=== PATIENT | female | born 1980 | race Caucasian/White ===

== ENCOUNTER 2020-02-16 20:19 | Inpatient (IN) | payer MEDICAID, OTHER, SELFPAY ==
[~2020-02-16] VITALS: Ht 170.2 cm; Wt 70.8 kg
[2020-02-16] MEDS ORDERED: IPRATROPIUM BROM 0.5 MG/2.5ML INH SOL NEB ONE (22:30)
[2020-02-16 22:39] LABS: Urine Bacteria MOD /hpf (None Seen); Urine Blood 2+ /uL (Negative); Urine Mucus FEW (None Seen); Urine Specific Gravity 1.017 (1.001-1.035); Urine WBC 53 /hpf (0 - 5); Urine WBC Clumps PRESENT /hpf (None Seen)
[2020-02-16 22:42] LABS: Albumin 2.7 g/dL (3.4-5.0); Calcium 8.6 mg/dL (8.5-10.1); Lactic Acid w/Reflex 2.8 mmol/L (0.4-2.0)
[2020-02-16 22:44] LABS: Bilirubin, Total 0.5 mg/dL (0.2-1.0); Total Protein 8.2 g/dL (6.4-8.2)
[2020-02-16 22:45] LABS: Hematocrit 17.8 % (36.0-46.0); Mean Corpuscular Hemoglobin 12.8 pg (28.0-32.0); Mean Corpuscular Hgb Conc. 24.1 g/dL (32.0-36.0); Mean Corpuscular Volume 52.9 fL (80.0-100.0); Red Blood Cells 3.36 10^6/uL (4.0-5.20); White Blood Cell 24.1 10^3/uL (4.4-10.8)
[2020-02-16 22:49] LABS: Red Cell Distribution Width 25.6 % (11.8-14.3)
[2020-02-16 22:52] LABS: Potassium 2.8 mmol/L (3.5-5.1)
[2020-02-16 22:53] LABS: Hemoglobin 4.3 g/dL (12.2-16.2); Platelet Count (auto) 1016 10^3/uL (140-450)
[2020-02-16 22:55] LABS: Basophils % (manual) 0 (0.0-2.0); Blast Cells 0; Eosinophils % (manual) 0 (0-7); Metamyelocytes % 0; Myelocytes % 0; Promyelocytes % 0; Reactive Lymphocytes 0
[2020-02-16] MEDS ORDERED: POTASSIUM EFFERVESENT TAB 25 MEQ PO ONE (23:00)
[2020-02-16 23:21] LABS: Band Neutrophils % (manual) 5; Lymphocytes % (manual) 10 (10.0-50.0); Monocytes % (manual) 5 (0-12)
[2020-02-16] MEDS ORDERED: levoFLOXacin 750MG 150 ML IV ONE (23:30)
[2020-02-17] VITALS (18 sets, daily range): BP systolic 91–109; BP diastolic 47–68
[2020-02-17] MEDS ORDERED: HYDROmorphone HCL 2 MG/ML VL IV ONE (00:30)
[2020-02-17] MEDS ORDERED: SODIUM CHLORIDE 0.9% 1,000 ML IV SCH (01:28)
[2020-02-17] MEDS ORDERED: ONDANSETRON HCL 4 MG/2 ML VIAL IV PRN (01:30)
[2020-02-17] MEDS ORDERED: ALBUTEROL SULF 2.5 MG/0.5ML(0.5%) NEB SOLN NEB PRN (01:30)
[2020-02-17] MEDS ORDERED: NITROGLYCERIN 0.4 MG SL TAB SL PRN (01:30)
[2020-02-17] MEDS ORDERED: DOCUSATE SOD 100 MG CAP PO PRN (01:30)
[2020-02-17] MEDS ORDERED: IPRATROPIUM BROM 0.5 MG/2.5ML INH SOL NEB PRN (01:30)
[2020-02-17] MEDS ORDERED: LORazepam 0.5 MG TAB PO PRN (01:30)
[2020-02-17] MEDS ORDERED: ACETAMINOPHEN 500 MG TAB PO PRN (01:30)
[2020-02-17] MEDS ORDERED: MORPHINE SULF INJ 2 MG/ML SYRINGE 1ML IV PRN ×2 (01:30)
[2020-02-17] MEDS ORDERED: ALBUTEROL SULF HFA 90MCG INH 200DOSE IN SCH ×2 (06:00)
[2020-02-17] MEDS ORDERED: methylPREDNISolone SOD SUCC 40 MG/ML VL ONE (09:05)
[2020-02-17] MEDS ORDERED: DOXYCYCLINE 100MG/250ML 250 ML IV SCH (10:00)
[2020-02-17] MEDS: methylPREDNISolone SOD SUCC 125 MG/2 ML VL IV SCH (10:38)
[2020-02-17] MEDS: ZINC SULFATE 220mg CAP or TAB PO SCH (10:39)
[2020-02-17] MEDS: CHOLECALCIFEROL (VITD3) 1,000IU=25mCg TAB PO SCH (10:40)
[2020-02-17] MEDS: ENOXAPARIN SOD 40 MG/0.4 ML SYRINGE SC SCH (10:40)
[2020-02-17] MEDS: ASCORBIC ACID 1,000 MG TAB PO SCH (10:40)
[2020-02-17 13:52] LABS: Hematocrit 23.4 % (36.0-46.0); Mean Corpuscular Hemoglobin 17.4 pg (28.0-32.0); Mean Corpuscular Hgb Conc. 28.1 g/dL (32.0-36.0); Mean Corpuscular Volume 61.9 fL (80.0-100.0); Red Blood Cells 3.78 10^6/uL (4.0-5.20); White Blood Cell 23.5 10^3/uL (4.4-10.8)
[2020-02-17 13:57] LABS: Red Cell Distribution Width 34.9 % (11.8-14.3)
[2020-02-17 14:02] LABS: Hemoglobin 6.6 g/dL (12.2-16.2); Platelet Count (auto) 999 10^3/uL (140-450)
[2020-02-17 14:05] LABS: Basophils % (manual) 0 (0.0-2.0); Blast Cells 0; Eosinophils % (manual) 0 (0-7); Metamyelocytes % 0; Myelocytes % 0; Promyelocytes % 0; Reactive Lymphocytes 0
[2020-02-17 14:20] LABS: Band Neutrophils % (manual) 3; Lymphocytes % (manual) 4 (10.0-50.0); Monocytes % (manual) 2 (0-12)
[2020-02-17] MEDS ORDERED: VANCOMYCIN 1GM/250ML 250 ML IV ONE ×2 (19:00→20:00)
[2020-02-17] MEDS: HYDROcodone-ACET 5/325MG TAB PO PRN (20:12)
[2020-02-18] VITALS (8 sets, daily range): BP systolic 89–110; BP diastolic 62–93
[2020-02-18 07:19] LABS: Hemoglobin 8.7 g/dL (12.2-16.2)
[2020-02-18 07:21] LABS: Hematocrit 28.8 % (36.0-46.0); Mean Corpuscular Hemoglobin 20.4 pg (28.0-32.0); Mean Corpuscular Hgb Conc. 30.3 g/dL (32.0-36.0); Mean Corpuscular Volume 67.2 fL (80.0-100.0); Red Blood Cells 4.28 10^6/uL (4.0-5.20); White Blood Cell 22.7 10^3/uL (4.4-10.8)
[2020-02-18 07:26] LABS: Red Cell Distribution Width 35.1 % (11.8-14.3)
[2020-02-18 07:30] LABS: Platelet Count (auto) 1017 10^3/uL (140-450)
[2020-02-18 07:31] LABS: Basophils % (manual) 0 (0.0-2.0); Blast Cells 0; Eosinophils % (manual) 0 (0-7); Myelocytes % 0; Promyelocytes % 0; Reactive Lymphocytes 0
[2020-02-18 07:38] LABS: BUN/Creatinine Ratio 21.1; Calcium 8.3 mg/dL (8.5-10.1); Potassium 3.6 mmol/L (3.5-5.1)
[2020-02-18 07:47] LABS: Band Neutrophils % (manual) 3; Lymphocytes % (manual) 13 (10.0-50.0); Metamyelocytes % 1; Monocytes % (manual) 3 (0-12)
[2020-02-18] MEDS ORDERED: VANCOMYCIN 1GM/250ML 250 ML IV SCH (10:00)
[2020-02-18] MEDS: CHOLECALCIFEROL (VITD3) 1,000IU=25mCg TAB PO SCH (11:36)
[2020-02-18] MEDS: ZINC SULFATE 220mg CAP or TAB PO SCH (11:36)
[2020-02-18] MEDS: methylPREDNISolone SOD SUCC 125 MG/2 ML VL IV SCH (11:37)
[2020-02-18] MEDS: ENOXAPARIN SOD 40 MG/0.4 ML SYRINGE SC SCH (11:37)
[2020-02-18] MEDS: ASCORBIC ACID 1,000 MG TAB PO SCH (11:37)
[2020-02-18] MEDS: HYDROcodone-ACET 5/325MG TAB PO PRN ×2 (11:39→21:10)
[2020-02-18] MEDS ORDERED: ERTAPENEM SOD INJ 1 GM in SODIUM CHL 0.9% 50 ML IV ONE (11:45)
[2020-02-18] MEDS ORDERED: OMNIPAQUE ORAL SOLN 500ml 12mg/ml PO ONE (11:55)
[2020-02-18] MEDS ORDERED: IOHEXOL 300 MG/ML 100ML BOTTLE IJ ONE (14:23)
[2020-02-18] MEDS ORDERED: VANCOMYCIN PER PHARMACY 0 MG IV SCH (14:30)
[2020-02-18] MEDS: VANCOMYCIN 1GM/250ML 250 ML IV SCH (22:59)
[2020-02-19 05:00] VITALS: BP 100/64
[2020-02-19 06:48] LABS: Hemoglobin 8.6 g/dL (12.2-16.2)
[2020-02-19 06:54] LABS: Hematocrit 28.6 % (36.0-46.0); Mean Corpuscular Hemoglobin 20.6 pg (28.0-32.0); Mean Corpuscular Hgb Conc. 30.1 g/dL (32.0-36.0); Mean Corpuscular Volume 68.7 fL (80.0-100.0); Red Blood Cells 4.16 10^6/uL (4.0-5.20); White Blood Cell 23.1 10^3/uL (4.4-10.8)
[2020-02-19 06:59] LABS: Potassium 3.9 mmol/L (3.5-5.1)
[2020-02-19 07:10] LABS: Red Cell Distribution Width 35.7 % (11.8-14.3)
[2020-02-19 07:13] LABS: Platelet Count (auto) 1247 10^3/uL (140-450)
[2020-02-19 07:15] LABS: Basophils % (manual) 0 (0.0-2.0); Blast Cells 0; Eosinophils % (manual) 0 (0-7); Myelocytes % 0; Promyelocytes % 0; Reactive Lymphocytes 0
[2020-02-19 07:36] LABS: Band Neutrophils % (manual) 4; Lymphocytes % (manual) 8 (10.0-50.0); Metamyelocytes % 1; Monocytes % (manual) 6 (0-12)
[2020-02-19 08:00] VITALS: BP 121/78
[2020-02-19] MEDS: HYDROcodone-ACET 5/325MG TAB PO PRN ×2 (08:17→19:18)
[2020-02-19] MEDS: CHOLECALCIFEROL (VITD3) 1,000IU=25mCg TAB PO SCH (10:02)
[2020-02-19] MEDS: ASCORBIC ACID 1,000 MG TAB PO SCH (10:02)
[2020-02-19] MEDS: methylPREDNISolone SOD SUCC 125 MG/2 ML VL IV SCH (10:02)
[2020-02-19] MEDS: ERTAPENEM SOD INJ 1 GM in SODIUM CHL 0.9% 50 ML IV SCH (10:03)
[2020-02-19] MEDS: ZINC SULFATE 220mg CAP or TAB PO SCH (10:03)
[2020-02-19] MEDS: VANCOMYCIN 1GM/250ML 250 ML IV SCH ×2 (11:01→23:09)
[2020-02-19 12:00] VITALS: BP 111/68
[2020-02-19 17:00] VITALS: BP 103/71
[2020-02-19] MEDS: Ensure HIGH Protein Chocolate 8oz Bottle PO SCH (17:59)
[2020-02-19 22:00] VITALS: BP 99/56
[2020-02-20 05:00] VITALS: BP 104/64
[2020-02-20 06:35] LABS: Hemoglobin 8.7 g/dL (12.2-16.2)
[2020-02-20 06:37] LABS: Hematocrit 29.6 % (36.0-46.0); Mean Corpuscular Hemoglobin 20.5 pg (28.0-32.0); Mean Corpuscular Hgb Conc. 29.4 g/dL (32.0-36.0); Mean Corpuscular Volume 69.9 fL (80.0-100.0); Red Blood Cells 4.24 10^6/uL (4.0-5.20); White Blood Cell 18.6 10^3/uL (4.4-10.8)
[2020-02-20 07:09] LABS: BUN/Creatinine Ratio 33.9; Calcium 8.2 mg/dL (8.5-10.1)
[2020-02-20 07:40] LABS: Red Cell Distribution Width 36.6 % (11.8-14.3)
[2020-02-20 07:42] LABS: Basophils % (manual) 0 (0.0-2.0); Blast Cells 0; Eosinophils % (manual) 0 (0-7); Platelet Count (auto) 1342 10^3/uL (140-450); Promyelocytes % 0; Reactive Lymphocytes 0
[2020-02-20 08:00] VITALS: BP 113/74
[2020-02-20 08:04] LABS: Band Neutrophils % (manual) 1; Lymphocytes % (manual) 13 (10.0-50.0); Metamyelocytes % 1; Monocytes % (manual) 4 (0-12); Myelocytes % 1
[2020-02-20] MEDS: Ensure HIGH Protein Chocolate 8oz Bottle PO SCH ×3 (08:38→18:09)
[2020-02-20] MEDS: ZINC SULFATE 220mg CAP or TAB PO SCH (09:12)
[2020-02-20] MEDS: ERTAPENEM SOD INJ 1 GM in SODIUM CHL 0.9% 50 ML IV SCH (09:12)
[2020-02-20] MEDS: methylPREDNISolone SOD SUCC 125 MG/2 ML VL IV SCH (09:12)
[2020-02-20] MEDS: CHOLECALCIFEROL (VITD3) 1,000IU=25mCg TAB PO SCH (09:12)
[2020-02-20] MEDS: ASCORBIC ACID 1,000 MG TAB PO SCH (09:12)
[2020-02-20] MEDS: VANCOMYCIN 1GM/250ML 250 ML IV SCH ×2 (11:33→23:05)
[2020-02-20 13:00] VITALS: BP 110/70
[2020-02-20 17:00] VITALS: BP 100/69
[2020-02-20] MEDS: HYDROcodone-ACET 5/325MG TAB PO PRN (18:49)
[2020-02-20 20:00] VITALS: BP 107/68
[2020-02-20 22:06] VITALS: BP 107/68
[2020-02-21 05:25] VITALS: BP 137/81
[2020-02-21 06:14] LABS: Hemoglobin 8.8 g/dL (12.2-16.2)
[2020-02-21 06:18] LABS: Hematocrit 28.5 % (36.0-46.0); Mean Corpuscular Hemoglobin 21.5 pg (28.0-32.0); Mean Corpuscular Hgb Conc. 30.7 g/dL (32.0-36.0); Red Blood Cells 4.07 10^6/uL (4.0-5.20); White Blood Cell 17.9 10^3/uL (4.4-10.8)
[2020-02-21 06:31] LABS: Red Cell Distribution Width 36.8 % (11.8-14.3)
[2020-02-21 06:32] LABS: Albumin 2.4 g/dL (3.4-5.0); Calcium 8.4 mg/dL (8.5-10.1); Potassium 4.3 mmol/L (3.5-5.1)
[2020-02-21 06:33] LABS: Platelet Count (auto) 1405 10^3/uL (140-450)
[2020-02-21 06:35] LABS: Basophils % (manual) 0 (0.0-2.0); Blast Cells 0; Promyelocytes % 0; Reactive Lymphocytes 0
[2020-02-21 06:36] LABS: BUN/Creatinine Ratio 33.3; Bilirubin, Total 0.5 mg/dL (0.2-1.0)
[2020-02-21 07:26] LABS: Band Neutrophils % (manual) 1; Eosinophils % (manual) 1 (0-7); Lymphocytes % (manual) 16 (10.0-50.0); Metamyelocytes % 1; Monocytes % (manual) 4 (0-12); Myelocytes % 1
[2020-02-21] MEDS: Ensure HIGH Protein Chocolate 8oz Bottle PO SCH ×3 (08:00→17:44)
[2020-02-21 09:08] VITALS: BP 107/75
[2020-02-21] MEDS: ASPirin 81 mg TAB PO SCH (09:37)
[2020-02-21] MEDS: ZINC SULFATE 220mg CAP or TAB PO SCH (09:37)
[2020-02-21] MEDS: ERTAPENEM SOD INJ 1 GM in SODIUM CHL 0.9% 50 ML IV SCH (09:37)
[2020-02-21] MEDS: CHOLECALCIFEROL (VITD3) 1,000IU=25mCg TAB PO SCH (09:37)
[2020-02-21] MEDS: ASCORBIC ACID 1,000 MG TAB PO SCH (09:37)
[2020-02-21] MEDS: methylPREDNISolone SOD SUCC 125 MG/2 ML VL IV SCH (09:37)
[2020-02-21] MEDS: HYDROcodone-ACET 5/325MG TAB PO PRN ×2 (10:08→18:37)
[2020-02-21] MEDS: VANCOMYCIN 1GM/250ML 250 ML IV SCH ×2 (11:24→23:25)
[2020-02-21 12:16] VITALS: BP 116/74
[2020-02-21] MEDS ORDERED: FLUCONAZOLE 100 MG TAB PO ONE (13:00)
[2020-02-21 16:55] VITALS: BP 104/71
[2020-02-21 22:47] VITALS: BP 117/79
[2020-02-22 05:21] VITALS: BP 103/65
[2020-02-22] MEDS: Ensure HIGH Protein Chocolate 8oz Bottle PO SCH ×2 (08:00→12:00)
[2020-02-22 09:00] VITALS: BP 103/57
[2020-02-22] MEDS: HYDROcodone-ACET 5/325MG TAB PO PRN ×2 (09:30→21:55)
[2020-02-22] MEDS: ASPirin 81 mg TAB PO SCH (09:32)
[2020-02-22] MEDS: CHOLECALCIFEROL (VITD3) 1,000IU=25mCg TAB PO SCH (09:33)
[2020-02-22] MEDS: ASCORBIC ACID 1,000 MG TAB PO SCH (09:33)
[2020-02-22] MEDS: ZINC SULFATE 220mg CAP or TAB PO SCH (09:33)
[2020-02-22] MEDS: methylPREDNISolone SOD SUCC 125 MG/2 ML VL IV SCH (09:33)
[2020-02-22] MEDS ORDERED: DOXYCYCLINE 100 MG TAB/CAP PO SCH (10:00)
[2020-02-22] MEDS: ERTAPENEM SOD INJ 1 GM in SODIUM CHL 0.9% 50 ML IV SCH (11:02)
[2020-02-22] MEDS ORDERED: levoFLOXacin 500 MG TAB PO ONE (11:30)
[2020-02-22 11:58] LABS: Hemoglobin 8.8 g/dL (12.2-16.2)
[2020-02-22 12:03] LABS: Hematocrit 29.6 % (36.0-46.0); Mean Corpuscular Hgb Conc. 29.6 g/dL (32.0-36.0); Red Blood Cells 4.17 10^6/uL (4.0-5.20)
[2020-02-22 12:23] LABS: Red Cell Distribution Width 37.1 % (11.8-14.3)
[2020-02-22 12:24] LABS: Platelet Count (auto) 1534 10^3/uL (140-450)
[2020-02-22 12:25] LABS: Band Neutrophils % (manual) 0; Basophils % (manual) 0 (0.0-2.0); Blast Cells 0; Eosinophils % (manual) 0 (0-7); Metamyelocytes % 0; Myelocytes % 0; Promyelocytes % 0; Reactive Lymphocytes 0
[2020-02-22 12:41] LABS: Lymphocytes % (manual) 7 (10.0-50.0); Monocytes % (manual) 7 (0-12)
[2020-02-22 13:00] VITALS: BP 128/86
[2020-02-22] MEDS: FLUCONAZOLE 100 MG TAB PO SCH (13:12)
[2020-02-22 17:00] VITALS: BP 124/80
[2020-02-22 20:00] VITALS: BP 120/70
[2020-02-22 22:00] VITALS: BP 120/70
[2020-02-23 05:00] VITALS: BP 110/72
[2020-02-23 08:00] VITALS: BP 132/83
[2020-02-23] MEDS: methylPREDNISolone SOD SUCC 125 MG/2 ML VL IV SCH (09:59)
[2020-02-23] MEDS: ASPirin 81 mg TAB PO SCH (09:59)
[2020-02-23] MEDS: ZINC SULFATE 220mg CAP or TAB PO SCH (10:00)
[2020-02-23] MEDS ORDERED: levoFLOXacin 500 MG TAB PO SCH (10:00)
[2020-02-23] MEDS ORDERED: hydroxyUREA 500 MG CAP PO SCH (10:00)
[2020-02-23] MEDS: ASCORBIC ACID 1,000 MG TAB PO SCH (10:00)
[2020-02-23] MEDS: CHOLECALCIFEROL (VITD3) 1,000IU=25mCg TAB PO SCH (10:00)
[2020-02-23] MEDS: FLUCONAZOLE 100 MG TAB PO SCH (10:05)
[2020-02-23 12:00] VITALS: BP 122/81
== END 2020-02-23 14:20 | disposition home or self-care (01) | DRG 663 ==
LOC: ER 20:19 → EDBD 20:19 → TELE 20:20 → TELE-EAST 02-17 04:30
PROVIDERS: ADMIT Hospitalist; ATTEND Internal Medicine
PROC: 30233N1 Transfusion of Nonautologous Red Blood Cells into Peripheral Vein, Percutaneous Approach (ICD-10-PCS; principal; 2020-02-17)
DX: D50.9 Iron deficiency anemia, unspecified (principal); E44.0 Moderate protein-calorie malnutrition; E88.09 Other disorders of plasma-protein metabolism, not elsewhere classified; C94.6 Myelodysplastic disease, not elsewhere classified; B37.9 Candidiasis, unspecified; D47.3 Essential (hemorrhagic) thrombocythemia; D56.3 Thalassemia minor; J98.11 Atelectasis; E05.90 Thyrotoxicosis, unspecified without thyrotoxic crisis or storm; N39.0 Urinary tract infection, site not specified; R79.89 Other specified abnormal findings of blood chemistry; J20.8 Acute bronchitis due to other specified organisms; E87.6 Hypokalemia; Z86.14 Personal history of Methicillin resistant Staphylococcus aureus infection; Z82.49 Family history of ischemic heart disease and other diseases of the circulatory system; Z88.0 Allergy status to penicillin; Z68.24 Body mass index [BMI] 24.0-24.9, adult; Z20.828 Contact with and (suspected) exposure to other viral communicable diseases; N92.0 Excessive and frequent menstruation with regular cycle
CPT/HCPCS: 36415; 71045; 71250; 74177; 76830; 76856; 80048; 80053; 80202; 81001; 81206; 81207; 82105; 82270; 82565; 82668; 82728; 83021; 83605; 83615; 83735; 84132; 84443; 84484; 85007; 85014; 85027; 85045; 85660; 86141; 86850; 86900; 86901; 86920; 87040; 87070; 87086; 87205; 87804; 87880; 93005; 93306; 96365; 96375; G0378; J1335; J1956; J3490

== ENCOUNTER 2020-04-12 20:20 | Inpatient (IN) | payer MEDICAID ==
[~2020-04-12] VITALS: Ht 170.2 cm; Wt 71.1 kg
[2020-04-12] MEDS: SODIUM CHLORIDE 0.9% 1,000 ML IV SCH (00:30)
[2020-04-12 21:30] LABS: Platelet Count (auto) 38 10^3/uL (140-450)
[2020-04-12 21:32] LABS: Hematocrit 7.9 % (36.0-46.0); Mean Corpuscular Hemoglobin 24.6 pg (28.0-32.0); Mean Corpuscular Hgb Conc. 28.7 g/dL (32.0-36.0); Mean Corpuscular Volume 85.6 fL (80.0-100.0); Red Blood Cells 0.93 10^6/uL (4.0-5.20); White Blood Cell 22.3 10^3/uL (4.4-10.8)
[2020-04-12 21:38] LABS: Red Cell Distribution Width 31.6 % (11.8-14.3)
[2020-04-12 21:40] LABS: Hemoglobin 2.3 g/dL (12.2-16.2)
[2020-04-12 21:41] LABS: Basophils % (manual) 0 (0.0-2.0); Blast Cells 0; Eosinophils % (manual) 0 (0-7); Monocytes % (manual) 0 (0-12); Myelocytes % 0; Promyelocytes % 0; Reactive Lymphocytes 0
[2020-04-12 21:44] LABS: Albumin 3.2 g/dL (3.4-5.0); BUN/Creatinine Ratio 14.1; Calcium 8.7 mg/dL (8.5-10.1); Magnesium 2.4 mg/dL (1.6-2.6); Potassium 4.2 mmol/L (3.5-5.1)
[2020-04-12 21:47] LABS: Bilirubin, Total 0.2 mg/dL (0.2-1.0); Total Protein 6.6 g/dL (6.4-8.2)
[2020-04-12 22:21] LABS: Partial Thromboplastin Time < 20.0 sec (23.64-32.05)
[2020-04-12 22:29] LABS: Band Neutrophils % (manual) 3; Lymphocytes % (manual) 19 (10.0-50.0); Metamyelocytes % 1
[2020-04-12] MEDS ORDERED: ACETAMINOPHEN 325 MG TAB PO PRN (23:15)
[2020-04-12] MEDS ORDERED: DOCUSATE SOD 100 MG CAP PO PRN (23:15)
[2020-04-12] MEDS ORDERED: HYDROcodone-ACET 5/325MG TAB PO PRN (23:15)
[2020-04-12] MEDS ORDERED: MORPHINE SULF INJ 2 MG/ML SYRINGE 1ML IV PRN (23:15)
[2020-04-12] MEDS ORDERED: METOCLOPRAMIDE HCL 5MG/ml INJ 2ml VIAL IV PRN (23:15)
[2020-04-12] MEDS ORDERED: ONDANSETRON HCL 4 MG/2 ML VIAL IV PRN (23:15)
[2020-04-13] VITALS (18 sets, daily range): BP systolic 90–124; BP diastolic 35–77
[2020-04-13] MEDS ORDERED: ACETAMINOPHEN 325 MG TAB PO ONE (00:30)
[2020-04-13] MEDS ORDERED: diphenhdrAMINE HCL 25 MG CAP PO ONE (00:30)
[2020-04-13] MEDS: SODIUM CHLORIDE 0.9% 1,000 ML IV SCH (00:40)
[2020-04-13 08:35] LABS: Platelet Count (auto) 30 10^3/uL (140-450); Red Blood Cells 1.68 10^6/uL (4.0-5.20)
[2020-04-13 08:38] LABS: Mean Corpuscular Hemoglobin 26.9 pg (28.0-32.0); Mean Corpuscular Hgb Conc. 32.3 g/dL (32.0-36.0); Mean Corpuscular Volume 83.4 fL (80.0-100.0); Red Cell Distribution Width 18.9 % (11.8-14.3); White Blood Cell 15.4 10^3/uL (4.4-10.8)
[2020-04-13 08:53] LABS: Potassium 3.6 mmol/L (3.5-5.1)
[2020-04-13 08:59] LABS: BUN/Creatinine Ratio 17.7; Hemoglobin 4.5 g/dL (12.2-16.2)
[2020-04-13 09:00] LABS: Band Neutrophils % (manual) 0; Basophils % (manual) 0 (0.0-2.0); Blast Cells 0; Metamyelocytes % 0; Promyelocytes % 0; Reactive Lymphocytes 0
[2020-04-13 09:11] LABS: Eosinophils % (manual) 1 (0-7); Lymphocytes % (manual) 23 (10.0-50.0); Monocytes % (manual) 6 (0-12); Myelocytes % 2
[2020-04-13 18:46] LABS: Platelet Count (auto) 38 10^3/uL (140-450)
[2020-04-13 18:48] LABS: Hemoglobin 7.6 g/dL (12.2-16.2); Mean Corpuscular Hemoglobin 29.3 pg (28.0-32.0); Mean Corpuscular Hgb Conc. 32.8 g/dL (32.0-36.0); Mean Corpuscular Volume 89.1 fL (80.0-100.0); Red Blood Cells 2.58 10^6/uL (4.0-5.20); Red Cell Distribution Width 16.9 % (11.8-14.3); White Blood Cell 14.2 10^3/uL (4.4-10.8)
[2020-04-13 18:56] LABS: Basophils % (manual) 0 (0.0-2.0); Blast Cells 0; Eosinophils % (manual) 0 (0-7); Metamyelocytes % 0; Myelocytes % 0; Promyelocytes % 0; Reactive Lymphocytes 0
[2020-04-13 20:47] LABS: Band Neutrophils % (manual) 3
[2020-04-13 20:48] LABS: Lymphocytes % (manual) 15 (10.0-50.0); Monocytes % (manual) 5 (0-12)
[2020-04-13] MEDS: medroxyPROGESTERone ACETATE 5 MG TAB PO SCH (22:00)
[2020-04-14 05:47] LABS: Hemoglobin 7.2 g/dL (12.2-16.2); Platelet Count (auto) 48 10^3/uL (140-450); Red Cell Distribution Width 17.4 % (11.8-14.3)
[2020-04-14 05:48] LABS: Hematocrit 21.5 % (36.0-46.0); Mean Corpuscular Hgb Conc. 33.3 g/dL (32.0-36.0); Mean Corpuscular Volume 86.9 fL (80.0-100.0); Red Blood Cells 2.48 10^6/uL (4.0-5.20); White Blood Cell 14.5 10^3/uL (4.4-10.8)
[2020-04-14 05:49] LABS: Basophils % (manual) 0 (0.0-2.0); Blast Cells 0; Promyelocytes % 0; Reactive Lymphocytes 0
[2020-04-14 06:08] LABS: Albumin 2.7 g/dL (3.4-5.0); BUN/Creatinine Ratio 18.1; Calcium 7.7 mg/dL (8.5-10.1); Potassium 3.7 mmol/L (3.5-5.1)
[2020-04-14 06:11] LABS: Bilirubin, Total 0.7 mg/dL (0.2-1.0); Total Protein 5.7 g/dL (6.4-8.2)
[2020-04-14 06:35] LABS: Band Neutrophils % (manual) 2
[2020-04-14 06:40] LABS: Lymphocytes % (manual) 23 (10.0-50.0); Metamyelocytes % 1; Monocytes % (manual) 11 (0-12); Myelocytes % 2
[2020-04-14] MEDS: SODIUM CHLORIDE 0.9% 1,000 ML IV SCH ×3 (08:47→22:43)
[2020-04-14] MEDS: medroxyPROGESTERone ACETATE 5 MG TAB PO SCH (10:00)
[2020-04-14 11:24] LABS: Eosinophils % (manual) 0 (0-7)
[2020-04-14] MEDS: SODIUM FERR GLUC 62.5MG/5ML 125 MG in SODIUM CHL 0.9% 100 ML IV SCH (13:12)
[2020-04-14 18:51] LABS: Hematocrit 21.6 % (36.0-46.0); Platelet Count (auto) 86 10^3/uL (140-450); Red Cell Distribution Width 17.5 % (11.8-14.3)
[2020-04-14 18:52] LABS: Hemoglobin 7.1 g/dL (12.2-16.2); Mean Corpuscular Hemoglobin 29.6 pg (28.0-32.0); Mean Corpuscular Hgb Conc. 33.2 g/dL (32.0-36.0); Mean Corpuscular Volume 89.3 fL (80.0-100.0); Red Blood Cells 2.41 10^6/uL (4.0-5.20); White Blood Cell 12.8 10^3/uL (4.4-10.8)
[2020-04-14 18:54] LABS: Basophils % (manual) 0 (0.0-2.0); Blast Cells 0; Myelocytes % 0; Promyelocytes % 0; Reactive Lymphocytes 0
[2020-04-14 21:22] LABS: Band Neutrophils % (manual) 5; Eosinophils % (manual) 3 (0-7); Lymphocytes % (manual) 12 (10.0-50.0); Metamyelocytes % 1; Monocytes % (manual) 3 (0-12)
[2020-04-14 22:50] LABS: Hematocrit 20.7 % (36.0-46.0)
[2020-04-15] VITALS (9 sets, daily range): BP systolic 95–114; BP diastolic 35–63
--- NOTE | 2020-04-15 03:00 | NUR ---
Patient woke up ansking for food, sandwich and juice provided
[2020-04-15] MEDS: SODIUM CHLORIDE 0.9% 1,000 ML IV SCH ×2 (08:30→15:32)
[2020-04-15 10:07] LABS: Mean Corpuscular Hemoglobin 28.1 pg (28.0-32.0); Mean Corpuscular Hgb Conc. 32.4 g/dL (32.0-36.0); Platelet Count (auto) 121 10^3/uL (140-450); Red Blood Cells 3.22 10^6/uL (4.0-5.20); Red Cell Distribution Width 17.9 % (11.8-14.3)
[2020-04-15] MEDS: medroxyPROGESTERone ACETATE 5 MG TAB PO SCH (10:07)
[2020-04-15 10:15] LABS: Basophils % (manual) 0 (0.0-2.0); Blast Cells 0; Myelocytes % 0; Promyelocytes % 0; Reactive Lymphocytes 0
[2020-04-15 10:39] LABS: Band Neutrophils % (manual) 2; Eosinophils % (manual) 1 (0-7); Lymphocytes % (manual) 14 (10.0-50.0); Metamyelocytes % 1; Monocytes % (manual) 3 (0-12)
[2020-04-15] MEDS: SODIUM FERR GLUC 62.5MG/5ML 125 MG in SODIUM CHL 0.9% 100 ML IV SCH (12:17)
--- NOTE | 2020-04-15 14:56 | NUR ---
Telemetry admit from ER DERICK RODRIGUEZ admitted to Telemetry unit after SBAR received. Patient oriented to Kristel Brown primary RN, unit, room, bed, and unit policies regarding patient care and visiting hours. Patient now on continuous telemetry monitoring, tele box # 26 and telemetry reading on arrival to unit is SR 80 bpm. Patient weighed by bed scale and encouraged to call if they need assistance. Instructed patient on POC, fall precautions and to call for assistance as needed. Patient verbalized understanding. Fall precautions in place with call light within reach.
--- NOTE | 2020-04-15 18:22 | NUR ---
Family called for an update Patient's father, Won, called for an update. Password obtained. Update provided. Phone call transferred to patient's bedside phone.
--- NOTE | 2020-04-15 18:46 | NUR ---
Closing note patient resting in bed with even and unlabored respirations, no distress noted. Fall precautions in place with call light within reach.
--- NOTE | 2020-04-15 19:00 | NUR ---
Opening Shift Note Assumed care of patient, awake and alert. No S/S of distress/SOB or pain. Instructed on POC and to call for assist PRN, will continue to monitor for changes Q1hr and PRN.
--- NOTE | 2020-04-15 19:11 | NUR ---
Care endorsed to GEOVANNY Melo.
[2020-04-15 21:33] LABS: Hematocrit 28.7 % (36.0-46.0); Hemoglobin 9.2 g/dL (12.2-16.2)
--- NOTE | 2020-04-15 22:00 | NUR ---
Patient had dinner and went to bed
[2020-04-16] MEDS: SODIUM CHLORIDE 0.9% 1,000 ML IV SCH ×2 (03:45→14:30)
[2020-04-16 05:00] VITALS: BP 108/75
--- NOTE | 2020-04-16 05:30 | NUR ---
Patient resting. no signs of distress. Denies pain or discomfort.
[2020-04-16 06:59] LABS: Hematocrit 28.8 % (36.0-46.0); Hemoglobin 9.4 g/dL (12.2-16.2); Mean Corpuscular Hemoglobin 28.9 pg (28.0-32.0); Mean Corpuscular Hgb Conc. 32.7 g/dL (32.0-36.0); Mean Corpuscular Volume 88.2 fL (80.0-100.0); Platelet Count (auto) 210 10^3/uL (140-450); Red Blood Cells 3.26 10^6/uL (4.0-5.20); Red Cell Distribution Width 18.5 % (11.8-14.3); White Blood Cell 13.7 10^3/uL (4.4-10.8)
[2020-04-16 07:01] LABS: Basophils % (manual) 0 (0.0-2.0); Blast Cells 0; Myelocytes % 0; Promyelocytes % 0; Reactive Lymphocytes 0
[2020-04-16 07:39] LABS: Band Neutrophils % (manual) 1; Eosinophils % (manual) 2 (0-7); Lymphocytes % (manual) 12 (10.0-50.0); Metamyelocytes % 1; Monocytes % (manual) 3 (0-12)
[2020-04-16 08:00] VITALS: BP 121/72
[2020-04-16] MEDS: medroxyPROGESTERone ACETATE 5 MG TAB PO SCH (09:10)
--- NOTE | 2020-04-16 10:45 | NUR ---
was at bedside - Dr. Faye This RN was at bedside. POC discussed with this RN and the patient.
[2020-04-16 12:00] VITALS: BP 103/59
--- NOTE | 2020-04-16 12:21 | NUR ---
Nutrition Assessment Notes please see attached link for complete assessment Est energy needs BW 71 [id number] kcal (25-30kcal/kg BW), Est protein needs 71-85g (1.0-1.2g/kg BW). Will reassess prn. Addendum: 04/16/20 at [address] Amended: Links added.
[2020-04-16] MEDS: SODIUM FERR GLUC 62.5MG/5ML 125 MG in SODIUM CHL 0.9% 100 ML IV SCH (13:15)
[2020-04-16] MEDS ORDERED: MEDR5TAB28 PO (13:23)
[2020-04-16] MEDS ORDERED: FER325T PO (13:23)
--- NOTE | 2020-04-16 14:40 | NUR ---
Discharge Discharge education and paperwork provided to the patient per MD order. Patient verbalized understanding. IV removed with aseptic technique, catheter intact. Dressing applied. Patient tolerated well, no trauma to site. Telemonitor removed and returned. Patient reports having all personal belongings. Respirations even and unlabored, no distress noted. Patient reports having all personal belongings. Patient calling her transportation to notify of discharge. Instructed patient to notify staff once transportation arrives to the hospital. Patient verbalized understanding.
--- NOTE | 2020-04-16 15:09 | NUR ---
Transportation arrived to hospital Patient refused wheelchair. Patient ambulated with a steady gait to hospital lobby accompanied by staff member. Respirations even and unlabored, no distress noted. Patient reports having all personal belongings.
== END 2020-04-16 15:09 | disposition home or self-care (01) | DRG 532 ==
LOC: ER 20:24 → TELE 20:25 → TELE-CENTR 04-15 14:56
PROVIDERS: ADMIT Hospitalist; ATTEND Internal Medicine
PROC: 30233N1 Transfusion of Nonautologous Red Blood Cells into Peripheral Vein, Percutaneous Approach (ICD-10-PCS; principal; 2020-04-13)
DX: N92.1 Excessive and frequent menstruation with irregular cycle (principal); D64.9 Anemia, unspecified; R65.10 Systemic inflammatory response syndrome (SIRS) of non-infectious origin without acute organ dysfunction; D69.6 Thrombocytopenia, unspecified; Z74.01 Bed confinement status; Z88.0 Allergy status to penicillin; Z85.6 Personal history of leukemia; Z92.21 Personal history of antineoplastic chemotherapy; Z03.818 Encounter for observation for suspected exposure to other biological agents ruled out; Z87.440 Personal history of urinary (tract) infections
CPT/HCPCS: 36415; 76830; 76856; 80048; 80053; 83735; 84443; 84702; 85007; 85014; 85018; 85027; 85384; 85610; 85730; 86850; 86900; 86901; 86920; 99291; G0378

== ENCOUNTER 2021-03-19 00:50 | Emergency (ER) | payer MEDICAID ==
[2021-03-19] VITALS (8 sets, daily range): BP systolic 103–116; BP diastolic 54–72
[~2021-03-19] VITALS: Ht 170.2 cm; Wt 65.8 kg
[~2021-03-19 00:50] MED LIST: FER325T PO; MEDR5TAB28 PO
[2021-03-19 01:21] LABS: Urine Bacteria FEW /hpf (None Seen); Urine Blood 3+ /uL (Negative); Urine Mucus FEW (None Seen); Urine Specific Gravity 1.021 (1.001-1.035); Urine WBC 2 /hpf (0 - 5)
[2021-03-19 01:37] LABS: Basophils # (auto) 0.2 10 ^3/uL (0-0.2); Basophils % (auto) 2.5 % (0.0-2.0); Eosinophils # (auto) 0.2 10 ^3/uL (0-0.8); Eosinophils % (auto) 1.8 % (0.0-7.0); Hematocrit 13.7 % (36.0-46.0); Lymphocytes # (auto) 2.2 10 ^3/uL (0.4-5.4); Lymphocytes % (auto) 23.1 % (10.0-50.0); Mean Corpuscular Hemoglobin 15.3 pg (28.0-32.0); Mean Corpuscular Hgb Conc. 29.1 g/dL (32.0-36.0); Mean Corpuscular Volume 52.4 fL (80.0-100.0); Monocytes # (auto) 0.7 10 ^3/uL (0-1.3); Monocytes % (auto) 7.9 % (0.0-12.0); Neutrophils # (auto) 6.1 10 ^3/uL (1.6-8.6); Neutrophils % (auto) 64.7 % (37.0-80.0); Nucleated Red Blood Cells % 1.1 %; Platelet Count (auto) 235 10^3/uL (140-450); Red Blood Cells 2.62 10^6/uL (4.0-5.20); Red Cell Distribution Width 19.9 % (11.8-14.3); White Blood Cell 9.5 10^3/uL (4.4-10.8)
[2021-03-19 01:43] LABS: Albumin 3.2 g/dL (3.4-5.0); BUN/Creatinine Ratio 20.5; Calcium 8.2 mg/dL (8.5-10.1); Potassium 3.9 mmol/L (3.5-5.1)
[2021-03-19] MEDS ORDERED: SODIUM CHLORIDE 0.9% 500 ML IV ONE (01:45)
[2021-03-19 01:47] LABS: Bilirubin, Total 0.2 mg/dL (0.2-1.0); Total Protein 6.7 g/dL (6.4-8.2)
[2021-03-19 02:44] LABS: Partial Thromboplastin Time < 20.0 sec (23.0-31.2)
[2021-03-19 10:18] LABS: Basophils # (auto) 0.1 10 ^3/uL (0-0.2); Eosinophils # (auto) 0.1 10 ^3/uL (0-0.8); Eosinophils % (auto) 1.5 % (0.0-7.0); Hematocrit 20.9 % (36.0-46.0); Lymphocytes # (auto) 1.6 10 ^3/uL (0.4-5.4); Neutrophils # (auto) 6.8 10 ^3/uL (1.6-8.6); Nucleated Red Blood Cells % 0.5 %; White Blood Cell 9.5 10^3/uL (4.4-10.8)
[2021-03-19 10:19] LABS: Basophils % (auto) 1.3 % (0.0-2.0); Lymphocytes % (auto) 16.6 % (10.0-50.0); Mean Corpuscular Hemoglobin 20.3 pg (28.0-32.0); Mean Corpuscular Hgb Conc. 30.9 g/dL (32.0-36.0); Mean Corpuscular Volume 65.6 fL (80.0-100.0); Monocytes # (auto) 0.8 10 ^3/uL (0-1.3); Monocytes % (auto) 8.9 % (0.0-12.0); Neutrophils % (auto) 71.7 % (37.0-80.0); Platelet Count (auto) 169 10^3/uL (140-450); Red Blood Cells 3.19 10^6/uL (4.0-5.20); Red Cell Distribution Width 34.7 % (11.8-14.3)
[2021-03-19 10:24] LABS: Hemoglobin 6.5 g/dL (12.2-16.2)
[2021-03-19 14:24] LABS: Basophils # (auto) 0.1 10 ^3/uL (0-0.2); Eosinophils # (auto) 0.2 10 ^3/uL (0-0.8); Lymphocytes # (auto) 1.5 10 ^3/uL (0.4-5.4); Neutrophils # (auto) 7.5 10 ^3/uL (1.6-8.6); White Blood Cell 10.1 10^3/uL (4.4-10.8)
[2021-03-19 14:26] LABS: Eosinophils % (auto) 2.1 % (0.0-7.0); Hematocrit 23.5 % (36.0-46.0); Hemoglobin 7.7 g/dL (12.2-16.2); Lymphocytes % (auto) 14.6 % (10.0-50.0); Mean Corpuscular Hemoglobin 21.7 pg (28.0-32.0); Mean Corpuscular Hgb Conc. 32.6 g/dL (32.0-36.0); Mean Corpuscular Volume 66.5 fL (80.0-100.0); Monocytes # (auto) 0.9 10 ^3/uL (0-1.3); Monocytes % (auto) 8.4 % (0.0-12.0); Neutrophils % (auto) 73.9 % (37.0-80.0); Nucleated Red Blood Cells % 0.5 %; Platelet Count (auto) 174 10^3/uL (140-450); Red Blood Cells 3.54 10^6/uL (4.0-5.20)
[2021-03-19 14:30] LABS: Red Cell Distribution Width 33.7 % (11.8-14.3)
[2021-03-19] MEDS ORDERED: TRANEXAMIC ACID 1,000 MG in SODIUM CHL 0.9% 100 ML IV ONE (18:45)
== END 2021-03-19 22:11 | disposition short-term general hospital (02) ==
LOC: ER 00:51
DX: D64.9 Anemia, unspecified (principal); N92.1 Excessive and frequent menstruation with irregular cycle; Z86.2 Personal history of diseases of the blood and blood-forming organs and certain disorders involving the immune mechanism; Z79.899 Other long term (current) drug therapy; Z88.0 Allergy status to penicillin; Z20.822 Contact with and (suspected) exposure to COVID-19
CPT/HCPCS: 36415; 36430; 76830; 76856; 80053; 81001; 84702; 85025; 85610; 85730; 86850; 86900; 86901; 86920; 87426; 96361; 96365; 96366; 99285; P9016

== ENCOUNTER 2021-11-29 16:54 | Emergency (ER) | payer MEDICAID ==
[~2021-11-29] VITALS: Ht 170.2 cm; Wt 65.8 kg
[2021-11-29 17:58] LABS: White Blood Cell 8.2 10^3/uL (4.4-10.8)
[2021-11-29 17:59] LABS: Basophils # (auto) 0.2 10 ^3/uL (0-0.2); Basophils % (auto) 1.9 % (0.0-2.0); Eosinophils # (auto) 0.2 10 ^3/uL (0-0.8); Eosinophils % (auto) 1.9 % (0.0-7.0); Lymphocytes # (auto) 1.2 10 ^3/uL (0.4-5.4); Lymphocytes % (auto) 14.8 % (10.0-50.0); Mean Corpuscular Hemoglobin 16.3 pg (28.0-32.0); Mean Corpuscular Volume 58.4 fL (80.0-100.0); Monocytes # (auto) 0.7 10 ^3/uL (0-1.3); Neutrophils % (auto) 73.4 % (37.0-80.0); Nucleated Red Blood Cells % 1.5 %; Red Blood Cells 3.76 10^6/uL (4.0-5.20); Red Cell Distribution Width 19.1 % (11.8-14.3)
[2021-11-29 18:04] LABS: Hemoglobin 6.1 g/dL (12.2-16.2)
[2021-11-29 18:06] LABS: Albumin 3.7 g/dL (3.4-5.0); Calcium 8.3 mg/dL (8.5-10.1); Potassium 4.2 mmol/L (3.5-5.1)
[2021-11-29 18:10] LABS: BUN/Creatinine Ratio 22.5; Bilirubin, Total 0.4 mg/dL (0.2-1.0); Total Protein 7.4 g/dL (6.4-8.2)
[2021-11-29 20:33] VITALS: BP 98/51
[2021-11-29 20:45] VITALS: BP 107/60
[2021-11-29 21:00] VITALS: BP 99/56
[2021-11-29] MEDS ORDERED: TRANEXAMIC ACID 10 ML ONE (21:31)
[2021-11-29] MEDS ORDERED: TRANEXAMIC ACID 1,000 MG in SODIUM CHL 0.9% 100 ML IV ONE (22:00)
[2021-11-29 22:49] LABS: Hematocrit 23.3 % (36.0-46.0)
[2021-11-29 23:31] VITALS: BP 109/61
[2021-11-30] VITALS: BP 117/55
[2021-11-30 00:15] VITALS: BP 117/55
== END 2021-11-30 00:48 | disposition home or self-care (01) ==
LOC: ER 16:54
DX: N92.1 Excessive and frequent menstruation with irregular cycle (principal); D64.9 Anemia, unspecified; Z88.0 Allergy status to penicillin
CPT/HCPCS: 36415; 36430; 80053; 84702; 85014; 85018; 85025; 86850; 86900; 86901; 86920; 96365; 99285; P9016

== ENCOUNTER 2022-02-13 14:19 | Emergency (ER) | payer MEDICAID ==
[2022-02-13] VITALS (8 sets, daily range): BP systolic 104–123; BP diastolic 46–73
[~2022-02-13] VITALS: Ht 167.6 cm; Wt 72.6 kg
[2022-02-13 15:38] LABS: Basophils # (auto) 0.2 10 ^3/uL (0-0.2); Basophils % (auto) 1.9 % (0.0-2.0); Eosinophils # (auto) 0.1 10 ^3/uL (0-0.8); Eosinophils % (auto) 0.9 % (0.0-7.0); Hematocrit 18.7 % (36.0-46.0); Lymphocytes # (auto) 1.9 10 ^3/uL (0.4-5.4); Mean Corpuscular Hemoglobin 15.7 pg (28.0-32.0); Mean Corpuscular Hgb Conc. 27.8 g/dL (32.0-36.0); Mean Corpuscular Volume 56.5 fL (80.0-100.0); Monocytes # (auto) 0.6 10 ^3/uL (0-1.3); Monocytes % (auto) 5.3 % (0.0-12.0); Neutrophils # (auto) 8.4 10 ^3/uL (1.6-8.6); Neutrophils % (auto) 74.9 % (37.0-80.0); Nucleated Red Blood Cells % 0.5 %; Red Blood Cells 3.32 10^6/uL (4.0-5.20); Red Cell Distribution Width 21.6 % (11.8-14.3); White Blood Cell 11.1 10^3/uL (4.4-10.8)
[2022-02-13 15:44] LABS: Hemoglobin 5.2 g/dL (12.2-16.2)
[2022-02-13 15:53] LABS: Albumin 3.6 g/dL (3.4-5.0); BUN/Creatinine Ratio 16.1; Calcium 8.9 mg/dL (8.5-10.1); Potassium 4.2 mmol/L (3.5-5.1)
[2022-02-13 15:55] LABS: Bilirubin, Total 0.5 mg/dL (0.2-1.0); Total Protein 7.4 g/dL (6.4-8.2)
[2022-02-13 16:28] LABS: Urine Bacteria NONE SEEN /hpf (None Seen); Urine Blood 3+ /uL (Negative); Urine Mucus MODERATE (None Seen); Urine Specific Gravity 1.022 (1.001-1.035); Urine WBC 5 /hpf (0 - 5)
[2022-02-14] MEDS ORDERED: MEDR5TAB28 OR (00:20)
[2022-02-14 00:43] LABS: Hemoglobin 9.5 g/dL (12.2-16.2)
[2022-02-14 00:56] LABS: Hematocrit 29.5 % (36.0-46.0)
[2022-02-14 01:00] VITALS: BP 109/71
== END 2022-02-14 01:16 | disposition home or self-care (01) ==
LOC: ER 14:19
DX: D64.9 Anemia, unspecified (principal); N93.8 Other specified abnormal uterine and vaginal bleeding; Z79.899 Other long term (current) drug therapy; Z88.0 Allergy status to penicillin
CPT/HCPCS: 36415; 36430; 76830; 76856; 80053; 81001; 84702; 85014; 85018; 85025; 86850; 86900; 86901; 86920; 93005; 99285; P9016

== ENCOUNTER 2022-11-22 01:01 | Inpatient (IN) | payer MEDICAID ==
[~2022-11-22] VITALS: Ht 170.2 cm; Wt 64.7 kg
[~2022-11-22 01:01] MED LIST changes: +MEDR5TAB28 OR
[2022-11-22 03:16] LABS: Basophils # (auto) 0.2 10 ^3/uL (0-0.2); Eosinophils # (auto) 0.2 10 ^3/uL (0-0.8); Hemoglobin 10.5 g/dL (12.2-16.2); Neutrophils # (auto) 6.8 10 ^3/uL (1.6-8.6); White Blood Cell 9.7 10^3/uL (4.4-10.8)
[2022-11-22 03:17] LABS: Basophils % (auto) 2.2 % (0.0-2.0); Eosinophils % (auto) 2.1 % (0.0-7.0); Hematocrit 36.7 % (36.0-46.0); Lymphocytes # (auto) 1.5 10 ^3/uL (0.4-5.4); Lymphocytes % (auto) 15.8 % (10.0-50.0); Mean Corpuscular Hemoglobin 16.4 pg (28.0-32.0); Mean Corpuscular Hgb Conc. 28.8 g/dL (32.0-36.0); Mean Corpuscular Volume 57.1 fL (80.0-100.0); Neutrophils % (auto) 69.9 % (37.0-80.0); Nucleated Red Blood Cells % 0.2 %; Red Blood Cells 6.41 10^6/uL (4.0-5.20)
[2022-11-22 03:31] LABS: Albumin 3.8 g/dL (3.4-5.0); BUN/Creatinine Ratio 25.3; Calcium 9.6 mg/dL (8.5-10.1); Potassium 3.3 mmol/L (3.5-5.1)
[2022-11-22 03:33] LABS: Bilirubin, Total 0.9 mg/dL (0.2-1.0); Total Protein 7.2 g/dL (6.4-8.2)
[2022-11-22 04:17] LABS: Red Cell Distribution Width 22.8 % (11.8-14.3)
[2022-11-22] MEDS ORDERED: methylPREDNISolone SOD SUCC 125 MG/2 ML VL IV ONE (07:15)
[2022-11-22] MEDS ORDERED: levoFLOXacin 500MG 100 ML IV ONE (07:15)
[2022-11-22] MEDS ORDERED: MORPHINE SULFATE INJ 2 MG/ml SYRG IV PRN (10:00)
[2022-11-22] MEDS ORDERED: HYDROcodone-ACET 5/325MG TAB PO PRN (10:00)
[2022-11-22] MEDS ORDERED: ACETAMINOPHEN 325 MG TAB PO PRN (10:00)
[2022-11-22] MEDS ORDERED: diphenhdrAMINE HCL 50 MG/1 ML VL IV ONE ×2 (10:30→10:45)
[2022-11-22] MEDS ORDERED: ALBUTEROL SULF 2.5 MG/0.5ML(0.5%) NEB SOLN NEB PRN (10:30)
[2022-11-22] MEDS ORDERED: FAMOTIDINE (10MG/ML) 2ML VL IV ONE (10:30)
[2022-11-22] MEDS ORDERED: diphenhdrAMINE HCL 50 MG/1 ML VL IV PRN (10:30)
[2022-11-22] MEDS ORDERED: IPRATROPIUM BROM 0.5 MG/2.5ML INH SOL NEB PRN (10:30)
[2022-11-22] MEDS ORDERED: hydrALAZINE HCL 20 MG/ML VL IV PRN (10:45)
[2022-11-22 10:57] LABS: Cholesterol 141 mg/dL (< 200); HDL Cholesterol 55 mg/dL (40-59); LDL Cholesterol 82 mg/dL (< 100); Triglycerides 66 mg/dL (< 150)
[2022-11-22] MEDS: ENOXAPARIN SOD 40 MG/0.4 ML SYRINGE SC SCH (11:11)
[2022-11-22] MEDS ORDERED: ALBUTEROL MEDNEB 2.5 mg/3ml NEB ONE ×2 (11:14→18:09)
[2022-11-22] MEDS: SODIUM CHLORIDE 0.9% 1,000 ML IV SCH ×2 (11:17→18:58)
[2022-11-22] MEDS: IPRATROPIUM BROM 0.5 MG/2.5ML INH SOL NEB SCH ×2 (11:22→21:18)
[2022-11-22] MEDS: ALBUTEROL SULF 2.5 MG/0.5ML(0.5%) NEB SOLN NEB SCH ×2 (11:22→21:18)
[2022-11-22 13:48] VITALS: BP 138/83
[2022-11-22] MEDS: AZTREONAM 1GM INJ 1 GM in D5W 5% 50 ML IV SCH ×2 (16:33→21:44)
[2022-11-22] MEDS ORDERED: ENOXAPARIN SOD 100 MG/1 ML SYRINGE SC ONE (19:30)
[2022-11-22] MEDS: FERROUS SULFATE 325mg EC TAB PO SCH (21:54)
[2022-11-23 00:26] LABS: Urine Bacteria NONE SEEN /hpf (None Seen); Urine Blood TRACE /uL (Negative); Urine Mucus FEW (None Seen); Urine Specific Gravity 1.024 (1.001-1.035); Urine WBC 3 /hpf (0 - 5)
[2022-11-23] MEDS ORDERED: ALBUTEROL MEDNEB 2.5 mg/3ml NEB ONE ×4 (01:03→18:20)
[2022-11-23 01:08] LABS: Barbiturate Scree,Urine NEGATIVE (NEGATIVE); Benzodiazephine Screen, Urine NEGATIVE (NEGATIVE); Cannabinoid Screen, Urine NEGATIVE (NEGATIVE); Phencyclidine Screen, Urine NEGATIVE (NEGATIVE)
[2022-11-23 01:17] LABS: Amphetamine Screen, Urine POSITIVE (NEGATIVE); Cocaine Screen, Urine NEGATIVE (NEGATIVE); Opiate Scree,Urine NEGATIVE (NEGATIVE)
[2022-11-23] MEDS: ALBUTEROL SULF 2.5 MG/0.5ML(0.5%) NEB SOLN NEB SCH ×4 (01:24→19:44)
[2022-11-23] MEDS: IPRATROPIUM BROM 0.5 MG/2.5ML INH SOL NEB SCH ×4 (01:24→19:45)
[2022-11-23 01:41] VITALS: BP 128/92
[2022-11-23] MEDS: SODIUM CHLORIDE 0.9% 1,000 ML IV SCH ×3 (02:30→22:26)
[2022-11-23 05:00] VITALS: BP 152/102
[2022-11-23] MEDS: AZTREONAM 1GM INJ 1 GM in D5W 5% 50 ML IV SCH ×3 (05:43→22:21)
[2022-11-23 06:08] LABS: Basophils # (auto) 0.1 10 ^3/uL (0-0.2); Eosinophils # (auto) 0.1 10 ^3/uL (0-0.8); Hematocrit 31.3 % (36.0-46.0)
[2022-11-23 06:10] LABS: Eosinophils % (auto) 0.6 % (0.0-7.0); Lymphocytes # (auto) 2.1 10 ^3/uL (0.4-5.4); Lymphocytes % (auto) 15.5 % (10.0-50.0); Mean Corpuscular Hemoglobin 16.3 pg (28.0-32.0); Mean Corpuscular Hgb Conc. 28.6 g/dL (32.0-36.0); Monocytes # (auto) 1.6 10 ^3/uL (0-1.3); Monocytes % (auto) 12.3 % (0.0-12.0); Neutrophils # (auto) 9.5 10 ^3/uL (1.6-8.6); Neutrophils % (auto) 70.6 % (37.0-80.0); Nucleated Red Blood Cells % 0.1 %; White Blood Cell 13.4 10^3/uL (4.4-10.8)
[2022-11-23 06:16] LABS: Potassium 4.2 mmol/L (3.5-5.1)
[2022-11-23 06:20] LABS: Red Cell Distribution Width 22.7 % (11.8-14.3)
[2022-11-23 06:32] LABS: Albumin 3.4 g/dL (3.4-5.0); BUN/Creatinine Ratio 24.3; Bilirubin, Total 0.8 mg/dL (0.2-1.0); Total Protein 6.3 g/dL (6.4-8.2)
[2022-11-23 09:00] VITALS: BP 139/105
[2022-11-23] MEDS: AZITHROMYCIN 500MG/ 250ML 250 ML IV SCH (09:16)
[2022-11-23] MEDS: FERROUS SULFATE 325mg EC TAB PO SCH ×2 (09:16→22:21)
[2022-11-23] MEDS: ENOXAPARIN SOD 40 MG/0.4 ML SYRINGE SC SCH (09:16)
[2022-11-23 13:00] VITALS: BP 139/99
[2022-11-23 17:00] VITALS: BP 129/81
[2022-11-23 22:00] VITALS: BP 137/86
[2022-11-24] MEDS: SODIUM CHLORIDE 0.9% 1,000 ML IV SCH ×3 (02:30→20:30)
[2022-11-24 05:00] VITALS: BP 125/72
[2022-11-24] MEDS: AZTREONAM 1GM INJ 1 GM in D5W 5% 50 ML IV SCH ×3 (05:37→22:33)
[2022-11-24] MEDS ORDERED: ALBUTEROL MEDNEB 2.5 mg/3ml NEB ONE ×3 (05:54→17:42)
[2022-11-24] MEDS: IPRATROPIUM BROM 0.5 MG/2.5ML INH SOL NEB SCH ×3 (07:42→18:06)
[2022-11-24] MEDS: ALBUTEROL SULF 2.5 MG/0.5ML(0.5%) NEB SOLN NEB SCH ×3 (07:42→18:06)
[2022-11-24 08:39] VITALS: BP 141/96
[2022-11-24] MEDS ORDERED: LORazepam 2MG/ML-1ML VIAL IM ONE (10:15)
[2022-11-24] MEDS: AZITHROMYCIN 500MG/ 250ML 250 ML IV SCH (10:19)
[2022-11-24] MEDS: FERROUS SULFATE 325mg EC TAB PO SCH ×2 (10:19→21:10)
[2022-11-24] MEDS: ENOXAPARIN SOD 40 MG/0.4 ML SYRINGE SC SCH (10:20)
[2022-11-24 13:00] VITALS: BP 127/97
[2022-11-24 17:00] VITALS: BP 132/89
[2022-11-24 22:00] VITALS: BP 150/97
[2022-11-25] MEDS: SODIUM CHLORIDE 0.9% 1,000 ML IV SCH ×3 (03:56→18:15)
[2022-11-25 05:00] VITALS: BP 146/66
[2022-11-25] MEDS ORDERED: ALBUTEROL MEDNEB 2.5 mg/3ml NEB ONE (05:51)
[2022-11-25] MEDS: IPRATROPIUM BROM 0.5 MG/2.5ML INH SOL NEB SCH ×4 (06:01→19:05)
[2022-11-25] MEDS: ALBUTEROL SULF 2.5 MG/0.5ML(0.5%) NEB SOLN NEB SCH (06:01)
[2022-11-25] MEDS: AZTREONAM 1GM INJ 1 GM in D5W 5% 50 ML IV SCH (06:07)
[2022-11-25 09:00] VITALS: BP 148/104
[2022-11-25] MEDS: AZITHROMYCIN 500MG/ 250ML 250 ML IV SCH (09:07)
[2022-11-25] MEDS: FERROUS SULFATE 325mg EC TAB PO SCH ×2 (09:10→22:12)
[2022-11-25] MEDS: ENOXAPARIN SOD 40 MG/0.4 ML SYRINGE SC SCH (09:12)
[2022-11-25] MEDS ORDERED: VANCOMYCIN PER PHARMACY 0 MG IV SCH (09:45)
[2022-11-25] MEDS ORDERED: VANCOMYCIN 1GM/250ML 250 ML IV SCH (12:00)
[2022-11-25] MEDS: ALBUTEROL MEDNEB 2.5 mg/3ml NEB NEB SCH ×3 (12:25→19:05)
[2022-11-25 13:00] VITALS: BP 130/91
[2022-11-25] MEDS: cefTRIAXone 1GM/50ML D5W 50 ML IV SCH (13:06)
[2022-11-25 13:25] VITALS: BP 148/104
[2022-11-25 16:42] VITALS: BP 137/84
[2022-11-25 22:00] VITALS: BP 135/81
[2022-11-26] MEDS: SODIUM CHLORIDE 0.9% 1,000 ML IV SCH ×3 (02:30→18:30)
[2022-11-26 05:00] VITALS: BP 149/98
[2022-11-26] MEDS: ALBUTEROL MEDNEB 2.5 mg/3ml NEB NEB SCH ×3 (06:10→19:46)
[2022-11-26] MEDS: IPRATROPIUM BROM 0.5 MG/2.5ML INH SOL NEB SCH ×3 (06:10→19:46)
[2022-11-26] MEDS: ENOXAPARIN SOD 40 MG/0.4 ML SYRINGE SC SCH (08:34)
[2022-11-26] MEDS: FERROUS SULFATE 325mg EC TAB PO SCH ×2 (08:34→21:22)
[2022-11-26] MEDS: AZITHROMYCIN 250 MG TAB PO SCH (08:34)
[2022-11-26] MEDS: cefTRIAXone 1GM/50ML D5W 50 ML IV SCH (08:34)
[2022-11-26 09:00] VITALS: BP 151/103
[2022-11-26 13:00] VITALS: BP 139/88
[2022-11-26 17:00] VITALS: BP 125/83
[2022-11-26 22:00] VITALS: BP 129/85
[2022-11-27] MEDS: SODIUM CHLORIDE 0.9% 1,000 ML IV SCH ×3 (02:30→18:30)
[2022-11-27 05:00] VITALS: BP 133/86
[2022-11-27] MEDS: IPRATROPIUM BROM 0.5 MG/2.5ML INH SOL NEB SCH ×2 (07:22→18:50)
[2022-11-27] MEDS: ALBUTEROL MEDNEB 2.5 mg/3ml NEB NEB SCH ×2 (07:22→18:50)
[2022-11-27 08:42] VITALS: BP 125/89
[2022-11-27] MEDS: FERROUS SULFATE 325mg EC TAB PO SCH ×2 (09:47→22:07)
[2022-11-27] MEDS: cefTRIAXone 1GM/50ML D5W 50 ML IV SCH (09:47)
[2022-11-27] MEDS: AZITHROMYCIN 250 MG TAB PO SCH (09:47)
[2022-11-27] MEDS: ENOXAPARIN SOD 40 MG/0.4 ML SYRINGE SC SCH (09:48)
[2022-11-27 13:10] VITALS: BP 119/83
[2022-11-27 16:42] VITALS: BP 114/76
[2022-11-27 18:21] LABS: BUN/Creatinine Ratio 33.3; Potassium 4.6 mmol/L (3.5-5.1)
[2022-11-27 20:00] VITALS: BP 103/68
[2022-11-27] MEDS ORDERED: IOHEXOL 350 MG/ML 100ML IJ ONE (21:49)
[2022-11-27 22:00] VITALS: BP 103/68
[2022-11-28 05:00] VITALS: BP 91/51
[2022-11-28 05:51] LABS: Nucleated Red Blood Cells % 0.1 %
[2022-11-28 05:54] LABS: Basophils # (auto) 0.3 10 ^3/uL (0-0.2); Basophils % (auto) 1.8 % (0.0-2.0); Eosinophils # (auto) 0.4 10 ^3/uL (0-0.8); Eosinophils % (auto) 2.7 % (0.0-7.0); Hematocrit 41.3 % (36.0-46.0); Hemoglobin 11.8 g/dL (12.2-16.2); Lymphocytes # (auto) 1.3 10 ^3/uL (0.4-5.4); Lymphocytes % (auto) 8.4 % (10.0-50.0); Mean Corpuscular Hemoglobin 17.4 pg (28.0-32.0); Mean Corpuscular Hgb Conc. 28.7 g/dL (32.0-36.0); Mean Corpuscular Volume 60.7 fL (80.0-100.0); Monocytes # (auto) 1.3 10 ^3/uL (0-1.3); Monocytes % (auto) 8.6 % (0.0-12.0); Neutrophils # (auto) 11.8 10 ^3/uL (1.6-8.6); Neutrophils % (auto) 78.5 % (37.0-80.0)
[2022-11-28 05:58] LABS: Red Cell Distribution Width 23.2 % (11.8-14.3)
[2022-11-28] MEDS: IPRATROPIUM BROM 0.5 MG/2.5ML INH SOL NEB SCH ×3 (06:11→11:23)
[2022-11-28] MEDS: ALBUTEROL MEDNEB 2.5 mg/3ml NEB NEB SCH ×3 (06:11→11:23)
[2022-11-28 06:20] LABS: Potassium 4.5 mmol/L (3.5-5.1)
[2022-11-28 06:25] LABS: BUN/Creatinine Ratio 27.7; Calcium 9.2 mg/dL (8.5-10.1)
[2022-11-28] MEDS: SODIUM CHLORIDE 0.9% 1,000 ML IV SCH (07:30)
[2022-11-28 09:10] VITALS: BP 91/51
[2022-11-28 09:52] VITALS: BP 115/79
[2022-11-28] MEDS: cefTRIAXone 1GM/50ML D5W 50 ML IV SCH (11:06)
[2022-11-28] MEDS: FERROUS SULFATE 325mg EC TAB PO SCH (11:06)
[2022-11-28] MEDS: ENOXAPARIN SOD 40 MG/0.4 ML SYRINGE SC SCH (11:06)
[2022-11-28] MEDS: AZITHROMYCIN 250 MG TAB PO SCH (11:06)
[2022-11-28] MEDS ORDERED: FLUT250M2 INH (11:32)
[2022-11-28] MEDS ORDERED: AZIT500T66 PO (11:32)
[2022-11-28] MEDS ORDERED: IPRA0.00 IN (11:32)
[2022-11-28 13:00] VITALS: BP 114/79
[2022-11-28 13:21] VITALS: BP 114/79
== END 2022-11-28 14:21 | disposition home or self-care (01) | DRG 139 ==
LOC: ER 01:01 → OVERFLOW 10:07 → CENTRAL 23:34
PROVIDERS: ADMIT Registered Nurse; ATTEND Internal Medicine
DX: J18.9 Pneumonia, unspecified organism (principal); J96.01 Acute respiratory failure with hypoxia; R78.81 Bacteremia; D64.9 Anemia, unspecified; Z20.822 Contact with and (suspected) exposure to COVID-19; J44.0 Chronic obstructive pulmonary disease with (acute) lower respiratory infection; Z85.6 Personal history of leukemia; Z88.0 Allergy status to penicillin; Z87.891 Personal history of nicotine dependence; Z98.82 Breast implant status; Z88.8 Allergy status to other drugs, medicaments and biological substances
CPT/HCPCS: 36415; 36600; 71045; 71250; 71275; 80048; 80053; 80061; 80307; 81001; 81025; 82565; 82805; 83036; 83880; 84443; 84484; 85025; 85379; 87040; 87077; 87186; 87426; 93005; 93306; 93970; 94640; 96361; 96365; 96367; 96372; 96375; 99291; G0378; J0696; J1956; J3490; J7060

== ENCOUNTER 2023-06-23 17:45 | Inpatient (IN) | payer MEDICAID ==
[~2023-06-23] VITALS: Ht 170.2 cm; Wt 67.4 kg
[~2023-06-23 17:45] MED LIST changes: +AZIT500T66 PO; +FLUT250M2 INH; +IPRA0.00 IN
[2023-06-23] MEDS ORDERED: IPRATROPIUM BROM 0.5 MG/2.5ML INH SOL NEB ONE (18:45)
[2023-06-23] MEDS ORDERED: ALBUTEROL SULF 2.5 MG/0.5ML(0.5%) NEB SOLN NEB ONE (18:45)
[2023-06-23] MEDS ORDERED: methylPREDNISolone SOD SUCC 40 MG/ML VL IV ONE (18:45)
[2023-06-23 18:50] LABS: Basophils # (auto) 0.2 10 ^3/uL (0-0.2); Basophils % (auto) 1.7 % (0.0-2.0); Eosinophils # (auto) 0.2 10 ^3/uL (0-0.8); Eosinophils % (auto) 1.6 % (0.0-7.0); Hemoglobin 12.5 g/dL (12.2-16.2); Lymphocytes # (auto) 1.3 10 ^3/uL (0.4-5.4); Lymphocytes % (auto) 11.8 % (10.0-50.0); Mean Corpuscular Hemoglobin 18.7 pg (28.0-32.0); Mean Corpuscular Hgb Conc. 29.1 g/dL (32.0-36.0); Mean Corpuscular Volume 64.4 fL (80.0-100.0); Monocytes # (auto) 0.6 10 ^3/uL (0-1.3); Monocytes % (auto) 5.5 % (0.0-12.0); Neutrophils % (auto) 79.4 % (37.0-80.0); Nucleated Red Blood Cells % 0.1 %; Red Blood Cells 6.68 10^6/uL (4.0-5.20); Red Cell Distribution Width 20.6 % (11.8-14.3); White Blood Cell 11.3 10^3/uL (4.4-10.8)
[2023-06-23 19:06] LABS: Alanine Aminotransferase 42 U/L (7-40); Albumin 4.4 g/dL (3.2-4.8); Alkaline Phosphatase 92 U/L (46-116); Anion Gap 9 (5-15); Aspartate Aminotransferase 34 U/L (13-40); BUN/Creatinine Ratio 17.8 (10.0-20.0); Blood Urea Nitrogen 21 mg/dL (9-23); Calcium 9.1 mg/dL (8.7-10.4); Carbon Dioxide 23 mmol/L (20-30); Chloride 109 mmol/L (98-107); Glucose 117 mg/dL (74-106); Magnesium 1.5 mg/dL (1.6-2.6); Potassium 3.7 mmol/L (3.5-5.1); Sodium 141 mmol/L (136-145)
[2023-06-23 19:07] LABS: Bilirubin, Total 1.2 mg/dL (0.2-1.0); Total Protein 6.1 g/dL (5.7-8.2)
[2023-06-23 19:23] VITALS: PULSE 101; RESP 17; O2SAT 90
[2023-06-23 19:42] LABS: Base Excess -0.8 mmol/L (-2.0-2.0)
[2023-06-23 19:45] LABS: INR 1.11 (0.9-1.15); Partial Thromboplastin Time 25.8 SEC (24.5-34.5); Prothrombin Time 11.6 sec (9.3-11.8)
[2023-06-23 19:54] LABS: Anisocytosis Slight; Hypochromia Marked; Platelet Estimate Adequate
[2023-06-23 20:00] VITALS: PULSE 115
[2023-06-23] MEDS ORDERED: NITROGLYCERIN 0.4 MG SL TAB SL PRN (20:30)
[2023-06-23] MEDS ORDERED: MORPHINE SULFATE INJ 2 MG/ml SYRG IV PRN (20:30)
[2023-06-23] MEDS ORDERED: ALBUTEROL SULF 2.5 MG/0.5ML(0.5%) NEB SOLN NEB PRN (20:30)
[2023-06-23] MEDS ORDERED: IPRATROPIUM BROM 0.5 MG/2.5ML INH SOL NEB PRN (20:30)
[2023-06-23] MEDS ORDERED: ONDANSETRON HCL 4 MG/2 ML VIAL IV PRN (20:30)
[2023-06-23] MEDS ORDERED: TEMAZEPAM 15 MG CAP PO PRN (20:30)
[2023-06-24] VITALS (12 sets, daily range): BP systolic 128–157; BP diastolic 86–98; PULSE 97–125; RESP 15–24; TEMP 97.6–98.5; O2SAT 90–97
[2023-06-24] MEDS ORDERED: FUROSEMIDE 20 MG/2 ML VIAL IV ONE (01:15)
[2023-06-24 02:45] LABS: Urine Bacteria FEW /hpf (None Seen); Urine Blood 3+ /uL (Negative); Urine Clarity Clear (Clear); Urine Mucus FEW (None Seen); Urine Protein, UAD TRACE (Negative); Urine Specific Gravity 1.009 (1.001-1.035); Urine Urobilinogen Normal (Negative); Urine WBC 34 /hpf (0 - 5); Urine pH 5.5 (5.0-8.0)
[2023-06-24 02:49] LABS: Urine Color Straw (Yellow)
[2023-06-24] MEDS: ACETAMINOPHEN 325 MG TAB PO PRN ×2 (02:51→17:32)
[2023-06-24 05:21] LABS: Eosinophils # (auto) 0 10 ^3/uL (0-0.8); Lymphocytes # (auto) 0.5 10 ^3/uL (0.4-5.4); Monocytes # (auto) 0.1 10 ^3/uL (0-1.3); Neutrophils # (auto) 9.6 10 ^3/uL (1.6-8.6)
[2023-06-24 05:28] LABS: Basophils # (auto) 0.1 10 ^3/uL (0-0.2); Basophils % (auto) 0.6 % (0.0-2.0); Hemoglobin 13.1 g/dL (12.2-16.2); Lymphocytes % (auto) 4.5 % (10.0-50.0); Mean Corpuscular Hemoglobin 18.9 pg (28.0-32.0); Mean Corpuscular Hgb Conc. 29.8 g/dL (32.0-36.0); Mean Corpuscular Volume 63.4 fL (80.0-100.0); Monocytes % (auto) 0.9 % (0.0-12.0); Red Blood Cells 6.93 10^6/uL (4.0-5.20)
[2023-06-24 05:29] LABS: Red Cell Distribution Width 20.4 % (11.8-14.3); White Blood Cell 10.2 10^3/uL (4.4-10.8)
[2023-06-24 05:31] LABS: Chloride 107 mmol/L (98-107); Potassium 3.9 mmol/L (3.5-5.1); Sodium 138 mmol/L (136-145)
[2023-06-24 05:32] LABS: Anion Gap 9 (5-15); Calcium 9.3 mg/dL (8.7-10.4); Carbon Dioxide 22 mmol/L (20-30)
[2023-06-24 05:37] LABS: BUN/Creatinine Ratio 12.7 (10.0-20.0); Blood Urea Nitrogen 16 mg/dL (9-23); Glucose 157 mg/dL (74-106)
[2023-06-24] MEDS: methylPREDNISolone SOD SUCC 40 MG/ML VL IV SCH ×2 (09:59→21:12)
[2023-06-24] MEDS ORDERED: ENOXAPARIN SOD 40 MG/0.4 ML SYRINGE SC SCH (10:00)
[2023-06-24] MEDS: PANTOPRAZOLE 40 MG TAB PO SCH (10:00)
[2023-06-24] MEDS: FUROSEMIDE 20 MG TAB PO SCH (10:00)
[2023-06-24] MEDS ORDERED: AZITHROMYCIN 500MG/ 250ML 250 ML IV ONE (12:15)
[2023-06-24] MEDS ORDERED: ALBUTEROL SULF 2.5 MG/0.5ML(0.5%) NEB SOLN NEB PRN (12:30)
[2023-06-24] MEDS ORDERED: cefTRIAXone 1GM/50ML D5W 50 ML IV ONE (12:30)
[2023-06-24] MEDS: MAGNESIUM SULFATE 1GM/100ML 100 ML IV SCH ×2 (12:45→14:07)
[2023-06-24] MEDS: ALBUTEROL SULF 2.5 MG/0.5ML(0.5%) NEB SOLN NEB SCH (18:53)
[2023-06-24] MEDS: IPRATROPIUM BROM 0.5 MG/2.5ML INH SOL NEB SCH (18:54)
[2023-06-25] VITALS (13 sets, daily range): BP systolic 123–144; BP diastolic 78–91; PULSE 94–116; RESP 17–22; TEMP 97.4–109; O2SAT 93–96
[2023-06-25 01:02] LABS: COVID19 ANTIGEN SOFIA FIA NEGATIVE (NEGATIVE); Rapid Influenza A Negative (Negative); Rapid Influenza B Negative (Negative)
[2023-06-25 06:19] LABS: Alanine Aminotransferase 36 U/L (7-40); Albumin 4.4 g/dL (3.2-4.8); Alkaline Phosphatase 80 U/L (46-116); Anion Gap 6 (5-15); Aspartate Aminotransferase 17 U/L (13-40); BUN/Creatinine Ratio 21.9 (10.0-20.0); Bilirubin, Total 0.9 mg/dL (0.2-1.0); Blood Urea Nitrogen 25 mg/dL (9-23); Calcium 9.2 mg/dL (8.7-10.4); Carbon Dioxide 25 mmol/L (20-30); Chloride 108 mmol/L (98-107); Glucose 127 mg/dL (74-106); Magnesium 2.1 mg/dL (1.6-2.6); Potassium 4.9 mmol/L (3.5-5.1); Sodium 139 mmol/L (136-145); Total Protein 6.1 g/dL (5.7-8.2)
[2023-06-25] MEDS: ALBUTEROL SULF 2.5 MG/0.5ML(0.5%) NEB SOLN NEB SCH ×3 (07:55→18:34)
[2023-06-25] MEDS: IPRATROPIUM BROM 0.5 MG/2.5ML INH SOL NEB SCH ×3 (07:56→18:34)
[2023-06-25 08:54] LABS: Basophils # (auto) 0.1 10 ^3/uL (0-0.2); Basophils % (auto) 0.3 % (0.0-2.0); Eosinophils # (auto) 0 10 ^3/uL (0-0.8); Hematocrit 45.1 % (36.0-46.0); Hemoglobin 13.1 g/dL (12.2-16.2); Lymphocytes # (auto) 0.7 10 ^3/uL (0.4-5.4); Lymphocytes % (auto) 3.3 % (10.0-50.0); Mean Corpuscular Hemoglobin 18.8 pg (28.0-32.0); Mean Corpuscular Hgb Conc. 29.1 g/dL (32.0-36.0); Mean Corpuscular Volume 64.7 fL (80.0-100.0); Monocytes # (auto) 0.9 10 ^3/uL (0-1.3); Monocytes % (auto) 4.3 % (0.0-12.0); Neutrophils # (auto) 19.3 10 ^3/uL (1.6-8.6); Neutrophils % (auto) 92.1 % (37.0-80.0); Nucleated Red Blood Cells % 0.1 %; Red Blood Cells 6.97 10^6/uL (4.0-5.20)
[2023-06-25 09:13] LABS: Red Cell Distribution Width 20.9 % (11.8-14.3)
[2023-06-25] MEDS: cefTRIAXone 1GM/50ML D5W 50 ML IV SCH (09:52)
[2023-06-25] MEDS: ACETAMINOPHEN 325 MG TAB PO PRN (09:53)
[2023-06-25] MEDS: FLUTICASONE PROP NASAL SPR 0.05 % (50MCG) 16GM EACHNOSTRI SCH ×2 (11:06→23:32)
[2023-06-25] MEDS: FUROSEMIDE 20 MG TAB PO SCH (11:08)
[2023-06-25] MEDS: PANTOPRAZOLE 40 MG TAB PO SCH (11:08)
[2023-06-25] MEDS: ENOXAPARIN SOD 40 MG/0.4 ML SYRINGE SC SCH (11:08)
[2023-06-25] MEDS: AZITHROMYCIN 500MG/ 250ML 250 ML IV SCH (11:09)
[2023-06-25] MEDS: methylPREDNISolone SOD SUCC 40 MG/ML VL IV SCH ×2 (11:11→23:32)
[2023-06-25] MEDS: MILRINONE 20MG/100ML 100 ML IV SCH ×2 (11:19→22:31)
[2023-06-25] MEDS: amLODIPine BESYLATE 5 MG TAB PO SCH (11:37)
[2023-06-25 12:58] LABS: Anisocytosis Slight; Hypochromia Marked; Platelet Estimate Adequate
[2023-06-26] VITALS (14 sets, daily range): BP systolic 112–148; BP diastolic 71–88; PULSE 75–125; RESP 17–23; TEMP 36.4; O2SAT 90–96
[2023-06-26] MEDS: ACETAMINOPHEN 325 MG TAB PO PRN (03:52)
[2023-06-26 06:43] LABS: Eosinophils # (auto) 0 10 ^3/uL (0-0.8); Monocytes # (auto) 0.4 10 ^3/uL (0-1.3); Monocytes % (auto) 1.8 % (0.0-12.0); Neutrophils # (auto) 22.6 10 ^3/uL (1.6-8.6); Nucleated Red Blood Cells % 0.1 %
[2023-06-26] MEDS: ALBUTEROL SULF 2.5 MG/0.5ML(0.5%) NEB SOLN NEB SCH ×4 (06:46→18:25)
[2023-06-26] MEDS: IPRATROPIUM BROM 0.5 MG/2.5ML INH SOL NEB SCH ×3 (06:46→18:25)
[2023-06-26 06:49] LABS: Basophils # (auto) 0.1 10 ^3/uL (0-0.2); Basophils % (auto) 0.2 % (0.0-2.0); Hematocrit 43.5 % (36.0-46.0); Lymphocytes # (auto) 0.8 10 ^3/uL (0.4-5.4); Lymphocytes % (auto) 3.3 % (10.0-50.0); Mean Corpuscular Hemoglobin 19.2 pg (28.0-32.0); Mean Corpuscular Hgb Conc. 29.9 g/dL (32.0-36.0); Mean Corpuscular Volume 64.2 fL (80.0-100.0); Neutrophils % (auto) 94.7 % (37.0-80.0); Red Blood Cells 6.78 10^6/uL (4.0-5.20); White Blood Cell 23.9 10^3/uL (4.4-10.8)
[2023-06-26 06:57] LABS: Alanine Aminotransferase 34 U/L (7-40); Albumin 4.1 g/dL (3.2-4.8); Alkaline Phosphatase 79 U/L (46-116); Anion Gap 9 (5-15); Aspartate Aminotransferase 18 U/L (13-40); BUN/Creatinine Ratio 19.5 (10.0-20.0); Bilirubin, Total 1.1 mg/dL (0.2-1.0); Blood Urea Nitrogen 22 mg/dL (9-23); Calcium 9.3 mg/dL (8.7-10.4); Carbon Dioxide 24 mmol/L (20-30); Chloride 104 mmol/L (98-107); Glucose 121 mg/dL (74-106); Magnesium 1.9 mg/dL (1.6-2.6); Potassium 4.3 mmol/L (3.5-5.1); Sodium 137 mmol/L (136-145); Total Protein 6.6 g/dL (5.7-8.2)
[2023-06-26 07:12] LABS: Amphetamine Screen, Urine Neg (NEGATIVE); Barbiturate Scree,Urine Neg (NEGATIVE); Benzodiazephine Screen, Urine Neg (NEGATIVE); Cannabinoid Screen, Urine Neg (NEGATIVE); Cocaine Screen, Urine Neg (NEGATIVE); Opiate Scree,Urine Neg (NEGATIVE); Phencyclidine Screen, Urine Neg (NEGATIVE)
[2023-06-26 07:46] LABS: Platelet Estimate Adequate
[2023-06-26 07:47] LABS: Anisocytosis Slight; Hypochromia Moderate
[2023-06-26] MEDS: cefTRIAXone 1GM/50ML D5W 50 ML IV SCH (08:47)
[2023-06-26] MEDS: MILRINONE 20MG/100ML 100 ML IV SCH (08:52)
[2023-06-26] MEDS: AZITHROMYCIN 500MG/ 250ML 250 ML IV SCH (10:09)
[2023-06-26] MEDS: amLODIPine BESYLATE 5 MG TAB PO SCH (10:12)
[2023-06-26] MEDS: PANTOPRAZOLE 40 MG TAB PO SCH (10:13)
[2023-06-26] MEDS: FUROSEMIDE 20 MG TAB PO SCH (10:13)
[2023-06-26] MEDS: methylPREDNISolone SOD SUCC 40 MG/ML VL IV SCH ×2 (10:13→22:03)
[2023-06-26] MEDS: ENOXAPARIN SOD 40 MG/0.4 ML SYRINGE SC SCH (10:14)
[2023-06-26] MEDS: SPIRONOLACTONE 25 MG TAB PO SCH (10:15)
[2023-06-26] MEDS: FLUTICASONE PROP NASAL SPR 0.05 % (50MCG) 16GM EACHNOSTRI SCH ×2 (10:16→22:07)
[2023-06-26] MEDS: KETOROLAC TROMETH 30 MG/ML 1ML VIAL IV PRN ×2 (16:01→22:03)
[2023-06-27] VITALS (14 sets, daily range): BP systolic 109–139; BP diastolic 81–97; PULSE 100–119; RESP 16–20; TEMP 97.5–97.8; O2SAT 90–96
[2023-06-27] MEDS: KETOROLAC TROMETH 30 MG/ML 1ML VIAL IV PRN ×3 (03:37→19:58)
[2023-06-27] MEDS: ALBUTEROL SULF 2.5 MG/0.5ML(0.5%) NEB SOLN NEB SCH ×4 (06:49→18:26)
[2023-06-27] MEDS: IPRATROPIUM BROM 0.5 MG/2.5ML INH SOL NEB SCH ×4 (06:49→18:26)
[2023-06-27] MEDS: cefTRIAXone 1GM/50ML D5W 50 ML IV SCH (08:36)
[2023-06-27] MEDS: FLUTICASONE PROP NASAL SPR 0.05 % (50MCG) 16GM EACHNOSTRI SCH ×2 (09:48→21:36)
[2023-06-27] MEDS: methylPREDNISolone SOD SUCC 40 MG/ML VL IV SCH ×2 (09:48→21:36)
[2023-06-27] MEDS: ENOXAPARIN SOD 40 MG/0.4 ML SYRINGE SC SCH (09:49)
[2023-06-27] MEDS: amLODIPine BESYLATE 5 MG TAB PO SCH (09:49)
[2023-06-27] MEDS: FUROSEMIDE 20 MG TAB PO SCH (09:49)
[2023-06-27] MEDS: PANTOPRAZOLE 40 MG TAB PO SCH (09:49)
[2023-06-27] MEDS: AZITHROMYCIN 500MG/ 250ML 250 ML IV SCH (09:49)
[2023-06-27] MEDS: SPIRONOLACTONE 25 MG TAB PO SCH (09:49)
[2023-06-27 13:52] LABS: Basophils # (auto) 0 10 ^3/uL (0-0.2); Basophils % (auto) 0.1 % (0.0-2.0); Eosinophils # (auto) 0 10 ^3/uL (0-0.8); Hematocrit 43.3 % (36.0-46.0); Hemoglobin 12.8 g/dL (12.2-16.2); Lymphocytes # (auto) 0.5 10 ^3/uL (0.4-5.4); Lymphocytes % (auto) 2.7 % (10.0-50.0); Mean Corpuscular Hgb Conc. 29.6 g/dL (32.0-36.0); Mean Corpuscular Volume 64.1 fL (80.0-100.0); Monocytes # (auto) 0.6 10 ^3/uL (0-1.3); Monocytes % (auto) 3.2 % (0.0-12.0); Nucleated Red Blood Cells % 0.2 %; Red Blood Cells 6.75 10^6/uL (4.0-5.20); Red Cell Distribution Width 20.8 % (11.8-14.3); White Blood Cell 18.1 10^3/uL (4.4-10.8)
[2023-06-27 14:16] LABS: Chloride 104 mmol/L (98-107); Potassium 4.5 mmol/L (3.5-5.1); Sodium 136 mmol/L (136-145)
[2023-06-27 14:17] LABS: Anion Gap 8 (5-15); Carbon Dioxide 24 mmol/L (20-30)
[2023-06-27 14:18] LABS: Calcium 9.3 mg/dL (8.7-10.4)
[2023-06-27 14:23] LABS: BUN/Creatinine Ratio 25.2 (10.0-20.0); Blood Urea Nitrogen 29 mg/dL (9-23); Glucose 188 mg/dL (74-106)
[2023-06-28] VITALS (13 sets, daily range): BP systolic 131–150; BP diastolic 81–96; PULSE 95–107; RESP 18–20; TEMP 97.4–98.6; O2SAT 91–97
[2023-06-28] MEDS: KETOROLAC TROMETH 30 MG/ML 1ML VIAL IV PRN ×4 (03:42→21:09)
[2023-06-28] MEDS: ALBUTEROL SULF 2.5 MG/0.5ML(0.5%) NEB SOLN NEB SCH ×3 (06:13→19:07)
[2023-06-28] MEDS: IPRATROPIUM BROM 0.5 MG/2.5ML INH SOL NEB SCH ×3 (06:13→19:07)
[2023-06-28 06:53] LABS: Anion Gap 9 (5-15); Carbon Dioxide 24 mmol/L (20-30); Chloride 105 mmol/L (98-107); Potassium 4.5 mmol/L (3.5-5.1); Sodium 138 mmol/L (136-145)
[2023-06-28 06:55] LABS: Calcium 9.3 mg/dL (8.7-10.4)
[2023-06-28 06:56] LABS: Basophils # (auto) 0 10 ^3/uL (0-0.2); Basophils % (auto) 0.1 % (0.0-2.0); Eosinophils # (auto) 0 10 ^3/uL (0-0.8); Lymphocytes # (auto) 0.6 10 ^3/uL (0.4-5.4); Mean Corpuscular Hemoglobin 19.1 pg (28.0-32.0); Mean Corpuscular Hgb Conc. 29.5 g/dL (32.0-36.0); Neutrophils # (auto) 16.2 10 ^3/uL (1.6-8.6); Nucleated Red Blood Cells % 0.1 %; Red Blood Cells 6.83 10^6/uL (4.0-5.20); White Blood Cell 17.4 10^3/uL (4.4-10.8)
[2023-06-28 06:58] LABS: Hematocrit 44.1 % (36.0-46.0); Lymphocytes % (auto) 3.6 % (10.0-50.0); Mean Corpuscular Volume 64.6 fL (80.0-100.0); Monocytes # (auto) 0.6 10 ^3/uL (0-1.3); Monocytes % (auto) 3.3 % (0.0-12.0)
[2023-06-28 06:59] LABS: BUN/Creatinine Ratio 24.1 (10.0-20.0); Blood Urea Nitrogen 26 mg/dL (9-23); Glucose 118 mg/dL (74-106)
[2023-06-28 07:20] LABS: Red Cell Distribution Width 20.4 % (11.8-14.3)
[2023-06-28 07:48] LABS: Platelet Estimate Adequate
[2023-06-28 07:49] LABS: Anisocytosis Slight; Hypochromia Marked
[2023-06-28 07:50] LABS: Ovalocytes FEW
[2023-06-28] MEDS: cefTRIAXone 1GM/50ML D5W 50 ML IV SCH (10:00)
[2023-06-28] MEDS: SPIRONOLACTONE 25 MG TAB PO SCH (10:02)
[2023-06-28] MEDS: amLODIPine BESYLATE 5 MG TAB PO SCH (10:02)
[2023-06-28] MEDS: ENOXAPARIN SOD 40 MG/0.4 ML SYRINGE SC SCH (10:03)
[2023-06-28] MEDS: methylPREDNISolone SOD SUCC 40 MG/ML VL IV SCH ×2 (10:03→21:09)
[2023-06-28] MEDS: FLUTICASONE PROP NASAL SPR 0.05 % (50MCG) 16GM EACHNOSTRI SCH ×2 (10:07→21:12)
[2023-06-28] MEDS: AZITHROMYCIN 500MG/ 250ML 250 ML IV SCH (10:10)
[2023-06-28] MEDS: FUROSEMIDE 20 MG TAB PO SCH (10:18)
[2023-06-28] MEDS: PANTOPRAZOLE 40 MG TAB PO SCH (10:34)
[2023-06-29] VITALS (13 sets, daily range): BP systolic 132–149; BP diastolic 60–99; PULSE 99–115; RESP 16–24; TEMP 97.5–98.6; O2SAT 90–95
[2023-06-29] MEDS: KETOROLAC TROMETH 30 MG/ML 1ML VIAL IV PRN ×4 (03:33→23:18)
[2023-06-29 06:53] LABS: Anion Gap 4 (5-15); Carbon Dioxide 28 mmol/L (20-30); Chloride 105 mmol/L (98-107); Potassium 4.7 mmol/L (3.5-5.1); Sodium 137 mmol/L (136-145)
[2023-06-29 06:55] LABS: Calcium 9.1 mg/dL (8.7-10.4)
[2023-06-29 07:00] LABS: BUN/Creatinine Ratio 28.4 (10.0-20.0); Blood Urea Nitrogen 27 mg/dL (9-23); Glucose 110 mg/dL (74-106)
[2023-06-29] MEDS: ALBUTEROL SULF 2.5 MG/0.5ML(0.5%) NEB SOLN NEB SCH ×3 (07:26→19:16)
[2023-06-29] MEDS: IPRATROPIUM BROM 0.5 MG/2.5ML INH SOL NEB SCH ×3 (07:26→19:16)
[2023-06-29 07:41] LABS: Hemoglobin 12.9 g/dL (12.2-16.2)
[2023-06-29 07:42] LABS: Hematocrit 44.1 % (36.0-46.0); Mean Corpuscular Hemoglobin 18.8 pg (28.0-32.0); Mean Corpuscular Hgb Conc. 29.3 g/dL (32.0-36.0); Mean Corpuscular Volume 64.2 fL (80.0-100.0); Red Blood Cells 6.86 10^6/uL (4.0-5.20); White Blood Cell 18.4 10^3/uL (4.4-10.8)
[2023-06-29 07:49] LABS: Red Cell Distribution Width 20.9 % (11.8-14.3)
[2023-06-29 07:51] LABS: Basophils % (manual) 0 (0.0-2.0); Blast Cells 0; Eosinophils % (manual) 0 (0-7); Myelocytes % 0; Promyelocytes % 0; Reactive Lymphocytes 0
[2023-06-29 09:03] LABS: Band Neutrophils % (manual) 4; Hypochromia Marked; Lymphocytes % (manual) 4 (10.0-50.0); Metamyelocytes % 2; Monocytes % (manual) 4 (0-12); Platelet Estimate Adequate
[2023-06-29 09:04] LABS: Anisocytosis Slight
[2023-06-29] MEDS: PANTOPRAZOLE 40 MG TAB PO SCH (09:58)
[2023-06-29] MEDS: amLODIPine BESYLATE 5 MG TAB PO SCH (09:58)
[2023-06-29] MEDS: FLUTICASONE PROP NASAL SPR 0.05 % (50MCG) 16GM EACHNOSTRI SCH (09:58)
[2023-06-29] MEDS: FUROSEMIDE 20 MG TAB PO SCH (09:59)
[2023-06-29] MEDS: SPIRONOLACTONE 25 MG TAB PO SCH (09:59)
[2023-06-29] MEDS: cefTRIAXone 1GM/50ML D5W 50 ML IV SCH (10:00)
[2023-06-29] MEDS: AZITHROMYCIN 500MG/ 250ML 250 ML IV SCH (10:00)
[2023-06-29] MEDS: methylPREDNISolone SOD SUCC 40 MG/ML VL IV SCH ×2 (10:02→21:31)
[2023-06-29] MEDS: ENOXAPARIN SOD 40 MG/0.4 ML SYRINGE SC SCH (10:02)
[2023-06-30] VITALS (15 sets, daily range): BP systolic 110–140; BP diastolic 69–91; PULSE 89–108; RESP 16–20; TEMP 97–98.6; O2SAT 89–99
[2023-06-30 06:15] LABS: Calcium 9.5 mg/dL (8.7-10.4); Chloride 102 mmol/L (98-107); Potassium 4.3 mmol/L (3.5-5.1); Sodium 135 mmol/L (136-145)
[2023-06-30 06:16] LABS: Anion Gap 7 (5-15); Carbon Dioxide 26 mmol/L (20-30)
[2023-06-30 06:21] LABS: Blood Urea Nitrogen 30 mg/dL (9-23); Glucose 119 mg/dL (74-106)
[2023-06-30] MEDS: IPRATROPIUM BROM 0.5 MG/2.5ML INH SOL NEB SCH ×3 (06:29→18:31)
[2023-06-30] MEDS: ALBUTEROL SULF 2.5 MG/0.5ML(0.5%) NEB SOLN NEB SCH ×3 (06:29→18:31)
[2023-06-30 06:35] LABS: Hematocrit 44.4 % (36.0-46.0); Hemoglobin 13.3 g/dL (12.2-16.2); Mean Corpuscular Volume 63.4 fL (80.0-100.0); White Blood Cell 18.5 10^3/uL (4.4-10.8)
[2023-06-30 06:52] LABS: Red Cell Distribution Width 20.6 % (11.8-14.3)
[2023-06-30 06:54] LABS: Band Neutrophils % (manual) 0; Basophils % (manual) 0 (0.0-2.0); Blast Cells 0; Eosinophils % (manual) 0 (0-7); Metamyelocytes % 0; Myelocytes % 0; Promyelocytes % 0; Reactive Lymphocytes 0
[2023-06-30 08:35] LABS: Lymphocytes % (manual) 5 (10.0-50.0); Monocytes % (manual) 7 (0-12); Platelet Estimate Adequate
[2023-06-30] MEDS: cefTRIAXone 1GM/50ML D5W 50 ML IV SCH (09:14)
[2023-06-30] MEDS: AZITHROMYCIN 500MG/ 250ML 250 ML IV SCH (10:52)
[2023-06-30] MEDS: SPIRONOLACTONE 25 MG TAB PO SCH (10:53)
[2023-06-30] MEDS: amLODIPine BESYLATE 5 MG TAB PO SCH (10:54)
[2023-06-30] MEDS: FUROSEMIDE 20 MG TAB PO SCH (10:55)
[2023-06-30] MEDS: KETOROLAC TROMETH 30 MG/ML 1ML VIAL IV PRN ×2 (10:56→21:10)
[2023-06-30] MEDS: ENOXAPARIN SOD 40 MG/0.4 ML SYRINGE SC SCH (10:57)
[2023-06-30] MEDS: methylPREDNISolone SOD SUCC 40 MG/ML VL IV SCH ×2 (10:58→21:08)
[2023-06-30] MEDS: PANTOPRAZOLE 40 MG TAB PO SCH (11:38)
[2023-06-30] MEDS: FLUTICASONE PROP NASAL SPR 0.05 % (50MCG) 16GM EACHNOSTRI SCH (12:55)
[2023-07-01] VITALS (16 sets, daily range): BP systolic 125–145; BP diastolic 70–103; PULSE 102–117; RESP 18–26; TEMP 97–97.6; O2SAT 90–97
[2023-07-01] MEDS: KETOROLAC TROMETH 30 MG/ML 1ML VIAL IV PRN ×4 (04:47→21:35)
[2023-07-01] MEDS: IPRATROPIUM BROM 0.5 MG/2.5ML INH SOL NEB SCH ×3 (06:50→18:45)
[2023-07-01] MEDS: ALBUTEROL SULF 2.5 MG/0.5ML(0.5%) NEB SOLN NEB SCH ×3 (06:51→18:45)
[2023-07-01] MEDS: cefTRIAXone 1GM/50ML D5W 50 ML IV SCH (09:11)
[2023-07-01] MEDS: AZITHROMYCIN 500MG/ 250ML 250 ML IV SCH (09:11)
[2023-07-01] MEDS: PANTOPRAZOLE 40 MG TAB PO SCH (09:11)
[2023-07-01] MEDS: FUROSEMIDE 20 MG TAB PO SCH (09:12)
[2023-07-01] MEDS: SPIRONOLACTONE 25 MG TAB PO SCH (09:12)
[2023-07-01] MEDS: methylPREDNISolone SOD SUCC 40 MG/ML VL IV SCH ×2 (09:13→21:27)
[2023-07-01] MEDS: amLODIPine BESYLATE 5 MG TAB PO SCH (09:13)
[2023-07-01] MEDS: ENOXAPARIN SOD 40 MG/0.4 ML SYRINGE SC SCH (09:14)
[2023-07-01] MEDS: FLUTICASONE PROP NASAL SPR 0.05 % (50MCG) 16GM EACHNOSTRI SCH ×2 (09:24→21:35)
[2023-07-02] VITALS (14 sets, daily range): BP systolic 117–158; BP diastolic 73–102; PULSE 60–117; RESP 14–20; TEMP 97.3–97.7; O2SAT 90–97
[2023-07-02] MEDS: KETOROLAC TROMETH 30 MG/ML 1ML VIAL IV PRN ×3 (03:56→22:45)
[2023-07-02] MEDS: IPRATROPIUM BROM 0.5 MG/2.5ML INH SOL NEB SCH ×3 (07:04→19:21)
[2023-07-02] MEDS: ALBUTEROL SULF 2.5 MG/0.5ML(0.5%) NEB SOLN NEB SCH ×3 (07:04→19:22)
[2023-07-02] MEDS: cefTRIAXone 1GM/50ML D5W 50 ML IV SCH (08:40)
[2023-07-02] MEDS: AZITHROMYCIN 500MG/ 250ML 250 ML IV SCH (08:40)
[2023-07-02] MEDS: methylPREDNISolone SOD SUCC 40 MG/ML VL IV SCH ×2 (08:41→21:38)
[2023-07-02] MEDS: ENOXAPARIN SOD 40 MG/0.4 ML SYRINGE SC SCH (08:41)
[2023-07-02] MEDS: FLUTICASONE PROP NASAL SPR 0.05 % (50MCG) 16GM EACHNOSTRI SCH ×2 (08:41→21:39)
[2023-07-02] MEDS: PANTOPRAZOLE 40 MG TAB PO SCH (08:42)
[2023-07-02] MEDS: amLODIPine BESYLATE 5 MG TAB PO SCH (08:42)
[2023-07-02] MEDS: FUROSEMIDE 20 MG TAB PO SCH (08:43)
[2023-07-02] MEDS: SPIRONOLACTONE 25 MG TAB PO SCH (08:43)
[2023-07-03] VITALS (10 sets, daily range): BP systolic 104–154; BP diastolic 65–100; PULSE 59–118; RESP 17–20; TEMP 97.5–97.9; O2SAT 93–98
[2023-07-03] MEDS: KETOROLAC TROMETH 30 MG/ML 1ML VIAL IV PRN (05:43)
[2023-07-03] MEDS: ALBUTEROL SULF 2.5 MG/0.5ML(0.5%) NEB SOLN NEB SCH ×2 (06:56→12:47)
[2023-07-03] MEDS: IPRATROPIUM BROM 0.5 MG/2.5ML INH SOL NEB SCH ×2 (06:56→12:46)
[2023-07-03 07:10] LABS: Hemoglobin 13.3 g/dL (12.2-16.2)
[2023-07-03 07:12] LABS: Hematocrit 44.6 % (36.0-46.0); Mean Corpuscular Hemoglobin 19.2 pg (28.0-32.0); Mean Corpuscular Hgb Conc. 29.8 g/dL (32.0-36.0); Mean Corpuscular Volume 64.3 fL (80.0-100.0); Red Blood Cells 6.94 10^6/uL (4.0-5.20); White Blood Cell 25.6 10^3/uL (4.4-10.8)
[2023-07-03 07:17] LABS: Basophils % (manual) 0 (0.0-2.0); Blast Cells 0; Eosinophils % (manual) 0 (0-7); Metamyelocytes % 0; Myelocytes % 0; Promyelocytes % 0; Reactive Lymphocytes 0; Red Cell Distribution Width 21.1 % (11.8-14.3)
[2023-07-03 08:14] LABS: Anisocytosis Slight; Band Neutrophils % (manual) 1; Hypochromia Marked; Lymphocytes % (manual) 11 (10.0-50.0); Monocytes % (manual) 7 (0-12); Ovalocytes FEW; Platelet Estimate Adequate; Target Cell FEW
[2023-07-03 08:29] LABS: Anion Gap 7 (5-15); Carbon Dioxide 24 mmol/L (20-30); Chloride 103 mmol/L (98-107); Potassium 4.8 mmol/L (3.5-5.1); Sodium 134 mmol/L (136-145)
[2023-07-03 08:30] LABS: Calcium 9.3 mg/dL (8.5-10.1)
[2023-07-03 08:35] LABS: BUN/Creatinine Ratio 29.6 (10.0-20.0); Blood Urea Nitrogen 32 mg/dL (9-23); Glucose 100 mg/dL (74-106)
[2023-07-03] MEDS: ENOXAPARIN SOD 40 MG/0.4 ML SYRINGE SC SCH (10:00)
[2023-07-03] MEDS: methylPREDNISolone SOD SUCC 40 MG/ML VL IV SCH (10:12)
[2023-07-03] MEDS: SPIRONOLACTONE 25 MG TAB PO SCH (10:12)
[2023-07-03] MEDS: PANTOPRAZOLE 40 MG TAB PO SCH (10:13)
[2023-07-03] MEDS: amLODIPine BESYLATE 5 MG TAB PO SCH (10:13)
[2023-07-03] MEDS: FLUTICASONE PROP NASAL SPR 0.05 % (50MCG) 16GM EACHNOSTRI SCH (10:13)
[2023-07-03] MEDS: FUROSEMIDE 20 MG TAB PO SCH (10:13)
== END 2023-07-03 14:00 | disposition home or self-care (01) | DRG 133 ==
LOC: ER 17:45 → TELE 20:23 → TELE-WESTW 06-24 08:04
PROVIDERS: ADMIT Nurse Practitioner; ATTEND Internal Medicine Pulmonary Disease
DX: J96.21 Acute and chronic respiratory failure with hypoxia (principal); I50.33 Acute on chronic diastolic (congestive) heart failure; I21.A1 Myocardial infarction type 2; I27.20 Pulmonary hypertension, unspecified; J44.1 Chronic obstructive pulmonary disease with (acute) exacerbation; J45.901 Unspecified asthma with (acute) exacerbation; I27.83 Eisenmenger's syndrome; E83.42 Hypomagnesemia; F15.90 Other stimulant use, unspecified, uncomplicated; D64.9 Anemia, unspecified; N39.0 Urinary tract infection, site not specified; J32.9 Chronic sinusitis, unspecified; Z20.822 Contact with and (suspected) exposure to COVID-19; R74.8 Abnormal levels of other serum enzymes; Q21.12 Patent foramen ovale; Z80.8 Family history of malignant neoplasm of other organs or systems; Z87.891 Personal history of nicotine dependence; Z88.0 Allergy status to penicillin; Z90.710 Acquired absence of both cervix and uterus; Z98.82 Breast implant status; Q24.9 Congenital malformation of heart, unspecified; Q21.10 Atrial septal defect, unspecified; D72.829 Elevated white blood cell count, unspecified
CPT/HCPCS: 36415; 36600; 70450; 71045; 71250; 76705; 80048; 80053; 80307; 81001; 81025; 82805; 83605; 83735; 83880; 84443; 84484; 85007; 85025; 85027; 85379; 85610; 85730; 87081; 87426; 87804; 93005; 93306; 93970; 94640; G0378; J0696; J1885

== ENCOUNTER 2024-10-08 23:59 | Emergency (ER) | payer MEDICAID ==
[~2024-10-08] VITALS: Ht 165.1 cm; Wt 150.0 kg
[2024-10-09] MEDS: methylPREDNISolone SOD SUCC 125 MG/2 ML VL IM ONE (00:34)
[2024-10-09] MEDS: ALBUTEROL SULF 2.5 MG/0.5ML(0.5%) NEB SOLN NEB ONE (00:55)
[2024-10-09] MEDS: IPRATROPIUM BROM 0.5 MG/2.5ML INH SOL NEB ONE (00:56)
[2024-10-09 01:07] LABS: Basophils # (auto) 0.1 10 ^3/uL (0-0.2); Eosinophils # (auto) 0.3 10 ^3/uL (0-0.8); Hematocrit 29.3 % (36.0-46.0); Hemoglobin 8.3 g/dL (12.2-16.2); Monocytes # (auto) 0.8 10 ^3/uL (0-1.3); Neutrophils # (auto) 7.6 10 ^3/uL (1.6-8.6)
[2024-10-09 01:09] LABS: Basophils % (auto) 1.1 % (0.0-2.0); Lymphocytes # (auto) 1.6 10 ^3/uL (0.4-5.4); Lymphocytes % (auto) 15.7 % (10.0-50.0); Mean Corpuscular Hemoglobin 15.7 pg (28.0-32.0); Mean Corpuscular Hgb Conc. 28.4 g/dL (32.0-36.0); Mean Corpuscular Volume 55.3 fL (80.0-100.0); Monocytes % (auto) 7.7 % (0.0-12.0); Neutrophils % (auto) 72.5 % (37.0-80.0); Nucleated Red Blood Cells % 0.4 %; Platelet Count (auto) 294 10^3/uL (140-450); White Blood Cell 10.4 10^3/uL (4.4-10.8)
[2024-10-09 01:11] LABS: Red Cell Distribution Width 21.2 % (11.8-14.3)
--- NOTE | 2024-10-09 01:23 | ED.PDOC ---
History of Present Illness HPI Comments 43 y/o F, with a Hx of anemia, CHF, COPD w/6LPM home O2 use, pulmonary HTN, pulmonary nodule, respiratory failure, methamphetamine abuse, and morbid obesity, is BIBA for c/o shortness of breath and productive cough, today. Per EMS report, patient endorses on sudden and unprovoked onset of difficulty breathing that worsens with exertion, yesterday evening, following onset of persisting, productive cough for the past week. She comments on no recent sick contact, travel, or any additional relevant or pertinent Hx. Patient reports no chest pain, palpitations, hemoptysis, fever, chills, or other associated symptoms or modifiers at this time. Chief Complaint: Shortness of Breath Time Seen by MD: 00:00 Primary Care Provider: Reviewed Notes: Nurses Notes, Community Service Representative Notes, Medications, Allergies Allergies: Coded Allergies: Levofloxacin (Verified Allergy, Intermediate, RASH,REDNESS, 11/22/22) Penicillins (Verified Allergy, Intermediate, 02/16/20) Home Meds Active Scripts Fluticasone-Salmeterol (Advair Diskus 250/50) 1 Puff Ih, 1 PUFF INH BID, #1 INHALER 1 Refill Prov:ROSE JONES MD 11/28/22 Ipratropium-Albuterol (Ipratropium [place]/Albut) 1 Agustin Agustin, 1 AGUSTIN IN TID, #90 ML Prov:ROSE JONES MD 11/28/22 Azithromycin (Azithromycin) 500 Mg Tab, 1 TAB PO DAILY, #5 TAB Prov:ROSE JONES MD 11/28/22 Medroxyprogesterone Acetate (PROVERA) 5 Mg Tab, 10 MG OR DAILY for 10 Days, #20 TAB Prov:LALY WHIPPLE DO 02/14/22 Ferrous Sulfate (FERROUS SULFATE) 325 Mg Tb, 1 TAB PO BID, #60 TAB Prov:MARIA ELENA WHEELER MD 04/16/20 Medroxyprogesterone Acetate (PROVERA) 5 Mg Tab, 10 MG PO DAILY, #14 TAB Prov:MARIA ELENA WHEELER MD 04/16/20 Information Source: Patient, Emergency Med Personnel Mode of Arrival: EMS Severity: Moderate Timing: Weeks Duration: Since onset Prehospital treatment: 12 Lead EKG, Pump 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, Oxygen Past Medical History PAST MEDICAL HISTORY: Anemia, CHF, COPD (6lpm home O2 use ), HTN (pulmonary HTN) Past Medical History (Other): respiratory failure, pulmonary nodule 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 History: Uterine Fibroids, Other Family History Family History: Reviewed,noncontributory to illness Social History Smoker: Non-Smoker Alcohol: Denies ETOH Use Drugs: Methamphetamine Lives In: Home Respiratory: reports: cough, shortness of breath All Other Systems: Reviewed and Negative (negative unless otherwise stated above or in HPI) Physical Exam General Appearance: No Apparent Distress, Normal HEENT: Normal ENT Inspection, Pharynx Normal, TMs Normal Neck: Full Range of Motion, Non-Tender, Normal, Normal Inspection Respiratory: Chest Non-Tender, No Accessory Muscle Use, Wheezing (scattered wheezing in upper bilataral lobes ) Cardiovascular: No Edema, No JVD, No Murmur, No Gallop, Normal Peripheral Pulses, Regular Rate/Rhythm Breast Exam: Deferred Gastrointestinal: No Organomegaly, Non Tender, No Pulsatile Mass, Normal Bowel Sounds, Soft Genitalia: Deferred Pelvic: Deferred Rectal: Deferred Extremities: No calf tenderness, Normal capillary refill, Normal inspection, Normal range of motion, Non-tender, No pedal edema Musculoskeletal : Apperance: Normal Neurologic: Alert, cement sprayer helper II-XII nml as Tested, No Motor Deficits, Normal Affect, Normal Mood, No Sensory Deficits Cerebellar Function: Normal Reflexes: Normal Skin: Dry, Normal Color, Warm Lymphatic: No Adenopathy Was a procedure done? Was a procedure done?: No EKG EKG : Pulse Rate (adult): 91 [place]: Normal Cardiac Rhythm: NSR Block: None Hypertrophy: None ST: Normal Differential Dx Considerations may include: URI, PE, HI, PNA, viral syndrome, COPD exacerbation, respiratory failure, CHF exacerbation X-Ray, Labs, Meds, VS Vital Signs Date Time Temp Pulse Resp B/P (MAP) Pulse Ox O2 Delivery O2 Flow Rate FiO2 10/09/24 01:23 91 10/09/24 01:00 18 100 Nasal Cannula* 6 44 10/09/24 00:02 91 10/08/24 23:59 97.9 103 18 118/73 (88) 97 Lab Test 10/09/24 00:58 Range/Units White Blood Count 10.4 4.4-10.8 10^3/uL Red Blood Count 5.30 H 4.0-5.20 10^6/uL Hemoglobin 8.3 L 12.2-16.2 g/dL Hematocrit 29.3 L 36.0-46.0 % Mean Corpuscular Volume 55.3 L 80.0-100.0 fL Mean Corpuscular Hemoglobin 15.7 L 28.0-32.0 pg Mean Corpuscular Hemoglobin Concent 28.4 L 32.0-36.0 g/dL Red Cell Distribution Width 21.2 H 11.8-14.3 % Platelet Count 294 140-450 10^3/uL Mean Platelet Volume 8.4 6.9-10.8 fL Neutrophils (%) (Auto) 72.5 37.0-80.0 % Lymphocytes (%) (Auto) 15.7 10.0-50.0 % Monocytes (%) (Auto) 7.7 0.0-12.0 % Eosinophils (%) (Auto) 3.0 0.0-7.0 % Basophils (%) (Auto) 1.1 0.0-2.0 % Neutrophils # (Auto) 7.6 1.6-8.6 10 ^3/uL Lymphocytes # (Auto) 1.6 0.4-5.4 10 ^3/uL Monocytes # (Auto) 0.8 0-1.3 10 ^3/uL Eosinophils # (Auto) 0.3 0-0.8 10 ^3/uL Basophils # (Auto) 0.1 0-0.2 10 ^3/uL Nucleated Red Blood Cells 0.4 % Sodium Level 140 136-145 mmol/L Potassium Level 3.5 3.5-5.1 mmol/L Chloride Level 108 H 98-107 mmol/L Carbon Dioxide Level 25 20-31 mmol/L Anion Gap 7 5-15 Blood Urea Nitrogen 15 9-23 mg/dL Creatinine 1.22 H 0.550-1.02 mg/dL Glomerular Filtration Rate Calc 57 >90 mL/min BUN/Creatinine Ratio 12.3 10.0-20.0 Serum Glucose 87 74-106 mg/dL Calcium Level 9.7 8.7-10.4 mg/dL Total Bilirubin 0.7 0.2-1.0 mg/dL Aspartate Amino Transferase (AST) 17 13-40 U/L Alanine Aminotransferase (ALT) 17 7-40 U/L Alkaline Phosphatase 102 46-116 U/L B-Type Natriuretic Peptide 272.20 0-100 pg/mL Total Protein 6.6 5.7-8.2 g/dL Albumin 4.2 3.2-4.8 g/dL Current Medications Medications (Trade) Dose Ordered Sig/Yuri Route Start Time Stop Time Status Last Admin Albuterol (Ventolin Medneb) 2.5 mg ONCE ONCE NEB 10/09/24 00:15 10/09/24 00:16 DC 10/09/24 00:55 Ipratropium [place] (Atrovent Medneb) 0.5 mg ONCE ONCE NEB 10/09/24 00:15 10/09/24 00:16 DC 10/09/24 00:56 Methylprednisolone Sodium Succinate (Solu Medrol) 125 mg ONCE ONCE IM 10/09/24 00:15 10/09/24 00:16 DC 10/09/24 00:34 X-Ray, Labs, Meds, VS Comment Imaging: X-rays and CT scans were reviewed and interpreted by this provider, imaging shows no fractures and no pathological disease. Pending radiology review. Laboratory: Labs reviewed and interpreted by this provider. No significant abnormalities noted. Patient has prior medical visits reviewed. Med reconciliation performed Vital signs reviewed Time of 1ST Reevaluation: 00:30 Reevaluation 1ST: Unchanged Patient Education/Counseling: Diagnosis, Treatment, Need For Follow Up (Patient advised to follow-up in the emergency room in the next 24 to 48 hours if symptoms do not improve. Advised follow-up with PCP in the next 3 to 5 days. Patient verbalized understanding. ) Family Education/Counseling: No Family Present Departure 1 Departure Time of Disposition: 02:46 Impression: Primary Impression: Pulmonary congestion Additional Impression: COPD exacerbation Disposition: 01 HOME / SELF CARE / HOMELESS Condition: Fair e-Prescriptions Azithromycin (Zithromax Z-Darion) 250 Mg Tab 250 MG PO DAILY for 5 Days, #6 TAB Prov: ISRA FUENTESP 10/09/24 Promethazine-Dm (Promethazine Dm 6.25-15 mg/5Ml) 1 Agustin Agustin 5 ML PO TID PRN, #240 ML Prov: ISRA FUENTES MANAGER BRANCH 10/09/24 Prednisone (Prednisone) 20 Mg Tab 40 MG PO DAILY for 5 Days, #10 MG Prov: ISRA FUENTES 10/09/24 Discharged With: Self Critical Care Note Critical Care Time?: No Stability Stability form required: No Heart Score Heart Score: Heart Score Response (Comments) Value History N/A 0 EKG N/A 0 Age N/A 0 Risk Factors N/A 0 Troponin N/A 0 Total 0 I personally scribed for ISRA FUENTES ([email or web address]) on 10/09/24 at 01:23. Electronically submitted by Chapincito Walter ([email or web address]). ISRA FUENTES Oct 09, 2024 01:23
[2024-10-09 01:25] LABS: Alanine Aminotransferase 17 U/L (7-40); Albumin 4.2 g/dL (3.2-4.8); Alkaline Phosphatase 102 U/L (46-116); Anion Gap 7 (5-15); Aspartate Aminotransferase 17 U/L (13-40); Bilirubin, Total 0.7 mg/dL (0.2-1.0); Calcium 9.7 mg/dL (8.7-10.4); Carbon Dioxide 25 mmol/L (20-31); Glucose 87 mg/dL (74-106); Potassium 3.5 mmol/L (3.5-5.1); Sodium 140 mmol/L (136-145); Total Protein 6.6 g/dL (5.7-8.2)
[2024-10-09 01:30] LABS: Chloride 108 mmol/L (98-107)
[2024-10-09 01:39] LABS: BUN/Creatinine Ratio 12.3 (10.0-20.0); Blood Urea Nitrogen 15 mg/dL (9-23)
[2024-10-09] MEDS ORDERED: PROM1SOL4 PO (02:48)
[2024-10-09] MEDS ORDERED: AZITTAB PO (02:48)
[2024-10-09] MEDS ORDERED: PRED20TA2 PO (02:48)
[2024-10-09 03:03] VITALS: BP 104/65; PULSE 89; RESP 18; TEMP 97.6; O2SAT 94
--- NOTE | 2024-10-09 03:05 | DVH ---
Examination: CXR1 Clinical Indication: sob Comparison: None. Technique: Frontal radiograph of the chest was obtained. Findings: Both the lung puente appear clear. Both the costophrenic and cardio-phrenic angles are normal. Trachea and mediastinum are in the midline. Cardiac size is within normal limits. There is no evidence of pleural effusion or pneumothorax. Bony thoracic cage appears normal. Impression: No abnormality is detected on this study. Electronically Signed 10/09/2024 03:05 Amalia Beasley
--- NOTE | 2024-10-10 06:35 | ECG ---
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
== END 2024-10-09 03:49 | disposition home or self-care (01) ==
LOC: EDBD 23:59 → ER 23:59
DX: J44.1 Chronic obstructive pulmonary disease with (acute) exacerbation (principal); R09.89 Other specified symptoms and signs involving the circulatory and respiratory systems; I27.20 Pulmonary hypertension, unspecified; I11.0 Hypertensive heart disease with heart failure; I50.9 Heart failure, unspecified; F15.90 Other stimulant use, unspecified, uncomplicated; E66.01 Morbid (severe) obesity due to excess calories; Z68.43 Body mass index [BMI] 50.0-59.9, adult; Z86.2 Personal history of diseases of the blood and blood-forming organs and certain disorders involving the immune mechanism; Z98.890 Other specified postprocedural states; Z88.0 Allergy status to penicillin; Z88.1 Allergy status to other antibiotic agents; Z79.51 Long term (current) use of inhaled steroids; Z79.899 Other long term (current) drug therapy
CPT/HCPCS: 36415; 71045; 80053; 83880; 85025; 93005; 94640; 96372; 99285; J2919